=== PATIENT | female | born 1945 | race Caucasian/White ===

== ENCOUNTER 2018-04-20 21:14 | Inpatient (IN) | payer MEDICARE, MEDICAID ==
[~2018-04-20] VITALS: Ht 154.9 cm; Wt 50.0 kg
[~2018-04-20 21:14] MED LIST: ALBU8.5H8 INH; ASPI-1265 PO; ATOR40TA PO; HYDR-3972 PO; METF500T PO; PREG75CA30 PO; VAL5T PO
[2018-04-21 03:10] LABS: BASOPHILS % (AUTO) 0.3 % (0-1); EOSINOPHILS # (AUTO) 0.1 X10'3 (0-0.9); HEMOGLOBIN 13.6 g/dl (12.0-16.0); LYMPHOCYTES # (AUTO) 1.3 X10'3 (1.1-4.8); LYMPHOCYTES % (AUTO) 13.1 % (21-51); MEAN CORPUSCULAR HEMOGLOBIN 33.4 PG (27.0-31.0); MEAN CORPUSCULAR HGB CONC 34.1 % (33.0-36.5); MEAN CORPUSCULAR VOLUME 97.9 FL (78-98); MEAN PLATELET VOLUME 7.4 FL (7.4-10.4); MONOCYTES # (AUTO) 0.7 X10'3 (0-0.9); NEUTROPHILS # (AUTO) 7.6 X10'3 (1.8-7.7); NEUTROPHILS % (AUTO) 78.6 % (42-75); PLATELET COUNT 229 X10'3 (140-440); RED BLOOD COUNT 4.08 X10'6 (4.20-5.60); RED CELL DISTRIBUTION WIDTH 12.9 % (11.5-14.5); WHITE BLOOD COUNT 9.7 X10'3 (4.5-11.0)
[2018-04-21 03:23] LABS: URINE AMPHETAMINE SCREEN NEGATIVE (Neg); URINE BARBITUATE SCREEN NEGATIVE (Neg); URINE BENZODIAZEPINES SCREEN POSITIVE (Neg); URINE CANNABINOID SCREEN NEGATIVE (Neg); URINE COCAINE SCREEN NEGATIVE (Neg); URINE METHADONE SCREEN NEGATIVE (Neg); URINE OPIATE SCREEN NEGATIVE (Neg); URINE PHENCYCLIDINE SCREEN NEGATIVE (Neg)
[2018-04-21 03:25] LABS: ALANINE AMINOTRANSFERASE 25 U/L (12-78); ALBUMIN 3.5 G/DL (3.4-5.0); ALBUMIN/GLOBULIN RATIO 1.2 (1.1-1.5); ALKALINE PHOSPHATASE 82 IU/L (46-116); ANION GAP 8 (8-16); ASPARTATE AMINO TRANSFERASE 14 U/L (10-37); BILIRUBIN,TOTAL 0.4 MG/DL (0.1-1.0); BLOOD UREA NITROGEN 15 MG/DL (7-18); CALCIUM 8.7 MG/DL (8.5-10.1); CHLORIDE 95 MMOL/L (99-107); CREATININE 0.94 MG/DL (0.40-0.90); GLUCOSE 123 MG/DL (70-104); POTASSIUM 3.8 MMOL/L (3.5-5.1); SODIUM 130 MMOL/L (135-145); TOTAL CARBON DIOXIDE 26.7 MMOL/L (24-32); TOTAL PROTEIN 6.5 G/DL (6.4-8.2); eGFR 58 ML/MIN
[2018-04-21 03:32] LABS: TROPONIN I < 0.04 NG/ML (0.0-0.05)
[2018-04-21 03:35] LABS: CLARITY,URINE CLEAR (Clear); COLOR,URINE YELLOW (Yellow); GLUCOSE, URINE NEGATIVE (Neg); KETONES,URINE NEGATIVE (Neg); LEUKOCYTE ESTERASE ,URINE NEGATIVE (Neg); NITRITES, URINE NEGATIVE (Neg); OCCULT BLOOD,URINE TRACE-INTACT (Neg); PH,URINE 6.5 (4.8-8.0); PROTEIN,URINE >=300 mg/dl (Neg); UA COLLECTION TYPE CLN CATCH MIDSTREAM; UROBILINOGEN,URINE 0.2 E.U/dL (0.2-1.0)
[2018-04-21 03:54] LABS: HYALINE CASTS 0-3 /LPF (NEGATIVE)
[2018-04-21 03:55] LABS: BACTERIA,URINE FEW /HPF (Neg); MUCUS STRANDS MODERATE /LPF (Neg); RBC,URINE 0-2 /HPF (0-2); SQUAMOUS EPITHELIAL CELL,UR FEW /LPF (FEW); TRANSITIONAL EPI CELLS,URINE FEW /HPF; WBC,URINE 0-4 /HPF (0-4)
[2018-04-21] MEDS ORDERED: acetaminophen 650mg rectal suppository RC PRN (05:35)
[2018-04-21] MEDS ORDERED: HYDROmorphone inj. 0.5 MG/0.5 ML DISP.SYRIN IV PRN ×2 (05:35)
[2018-04-21] MEDS ORDERED: dextrose ORAL solution 15 GM/59 ML bottle PO PRN ×2 (05:35)
[2018-04-21] MEDS ORDERED: diphenhydrAMINE 50 mg/ml inj IV PRN (05:35)
[2018-04-21] MEDS ORDERED: ondansetron/PF 4mg/2ml inj IV PRN (05:35)
[2018-04-21] MEDS ORDERED: acetaminophen 325mg tablet PO PRN ×2 (05:35)
[2018-04-21] MEDS ORDERED: mag hydrox/Alum hydrox/simeth 30ml oral suspension PO PRN (05:35)
[2018-04-21] MEDS ORDERED: diphenhydrAMINE 25mg capsule PO PRN (05:35)
[2018-04-21] MEDS ORDERED: glucagon, human recombinant 1mg kit SUBCUT PRN (05:35)
[2018-04-21] MEDS ORDERED: magnesium hydroxide 30ml (MOM) UD suspension PO PRN (05:35)
[2018-04-21] MEDS ORDERED: metoclopramide 5 mg/ml inj IV PRN (05:35)
[2018-04-21] MEDS ORDERED: bisacodyl 10mg suppository rectal RC PRN (05:35)
[2018-04-21] MEDS ORDERED: morphine 4 MG/ML inj SYRINge IV PRN ×2 (05:35)
[2018-04-21] MEDS ORDERED: insulin Lispro (HumaLOG) vial - multi-dose SQ SCH (05:35)
[2018-04-21] MEDS ORDERED: dextrose 50%-water 50ml dispensing syringe IV PRN ×2 (05:35)
[2018-04-21] MEDS ORDERED: MESSAGE TO PHARMACY PO ONE (05:35)
[2018-04-21] MEDS ORDERED: HYDROcodone/acetaminophen 5mg/325mg tablet PO PRN (05:35)
[2018-04-21 06:01] LABS: PARTIAL THROMBOPLASTIN TIME 28 SECONDS (22-32)
[2018-04-21 06:06] LABS: HEMOGLOBIN A1C 6.3 % (4.5-6.2)
[2018-04-21 06:07] LABS: CREATINE KINASE 35 U/L (26-192); LIPASE 195 U/L (73-393); MAGNESIUM 1.9 MG/DL (1.5-2.4); PHOSPHORUS 2.9 MG/DL (2.3-4.5)
[2018-04-21] MEDS: normal saline 1000ml 1,000 ML IV SCH ×3 (07:45→19:47)
[2018-04-21] MEDS: docusate sod 100mg capsule PO SCH ×2 (07:45→19:47)
[2018-04-21] MEDS: heparin, porcine 5000 units/ml vial SQ SCH ×2 (07:46→19:48)
[2018-04-21 09:35] VITALS: BP 164/80
[2018-04-21] MEDS: HYDROcodone/acetaminophen 10/325mg tab PO PRN ×4 (10:00→23:47)
[2018-04-21 11:50] VITALS: BP 142/71
[2018-04-21] MEDS ORDERED: gadopentetate dimeglumine 7.5 MMOL/15 ML syringe ONE (15:51)
[2018-04-21 19:00] VITALS: BP 149/59
[2018-04-21] MEDS ORDERED: temazepam 15mg capsule PO PRN (21:00)
[2018-04-21] MEDS: insulin glargine (Lantus) pen - multi-dose SQ SCH (21:00)
[2018-04-21 23:00] VITALS: BP 162/82
[2018-04-22 05:00] LABS: BASOPHILS % (AUTO) 0.4 % (0-1); EOSINOPHILS # (AUTO) 0.1 X10'3 (0-0.9); HEMATOCRIT 35.2 % (35.0-45.0); HEMOGLOBIN 12.1 g/dl (12.0-16.0); LYMPHOCYTES # (AUTO) 1.5 X10'3 (1.1-4.8); LYMPHOCYTES % (AUTO) 24.9 % (21-51); MEAN CORPUSCULAR HEMOGLOBIN 33.4 PG (27.0-31.0); MEAN CORPUSCULAR HGB CONC 34.5 % (33.0-36.5); MEAN CORPUSCULAR VOLUME 96.9 FL (78-98); MEAN PLATELET VOLUME 7.3 FL (7.4-10.4); MONOCYTES # (AUTO) 0.6 X10'3 (0-0.9); MONOCYTES % (AUTO) 10.9 % (2-12); NEUTROPHILS # (AUTO) 3.6 X10'3 (1.8-7.7); NEUTROPHILS % (AUTO) 61.8 % (42-75); PLATELET COUNT 179 X10'3 (140-440); RED BLOOD COUNT 3.64 X10'6 (4.20-5.60); WHITE BLOOD COUNT 5.9 X10'3 (4.5-11.0)
[2018-04-22] MEDS: normal saline 1000ml 1,000 ML IV SCH ×2 (05:04→15:22)
[2018-04-22 05:38] LABS: ALANINE AMINOTRANSFERASE 16 U/L (12-78); ALBUMIN 2.7 G/DL (3.4-5.0); ALKALINE PHOSPHATASE 66 IU/L (46-116); ANION GAP 8 (8-16); ASPARTATE AMINO TRANSFERASE 14 U/L (10-37); BILIRUBIN,TOTAL 0.2 MG/DL (0.1-1.0); BLOOD UREA NITROGEN 14 MG/DL (7-18); BUN/CREATININE RATIO 16.3 (6.6-38.0); CHLORIDE 105 MMOL/L (99-107); CREATININE 0.86 MG/DL (0.40-0.90); GLUCOSE 100 MG/DL (70-104); SODIUM 135 MMOL/L (135-145); TOTAL CARBON DIOXIDE 22.5 MMOL/L (24-32); TOTAL PROTEIN 5.5 G/DL (6.4-8.2); eGFR 65 ML/MIN
[2018-04-22 07:22] VITALS: BP 150/76
[2018-04-22] MEDS: docusate sod 100mg capsule PO SCH ×2 (08:00→20:48)
[2018-04-22] MEDS: heparin, porcine 5000 units/ml vial SQ SCH ×2 (08:54→20:49)
[2018-04-22] MEDS ORDERED: diazepam 5mg tablet PO PRN (09:15)
[2018-04-22] MEDS ORDERED: albuterol 2.5 MG/3 ML nebule NEB PRN (09:15)
[2018-04-22] MEDS: HYDROcodone/acetaminophen 10/325mg tab PO PRN ×3 (10:28→23:32)
[2018-04-22 11:15] VITALS: BP 138/73
[2018-04-22 16:38] LABS: OCCULT BLOOD STOOL NEGATIVE (Neg)
[2018-04-22 19:30] VITALS: BP 171/81
[2018-04-22 20:00] VITALS: BP 167/84
[2018-04-22] MEDS: insulin glargine (Lantus) pen - multi-dose SQ SCH (21:28)
[2018-04-22 23:30] VITALS: BP 197/85
[2018-04-23 00:30] VITALS: BP 160/89
[2018-04-23] MEDS: normal saline 1000ml 1,000 ML IV SCH ×2 (01:26→17:34)
[2018-04-23 05:48] LABS: BASOPHILS % (AUTO) 0.8 % (0-1); EOSINOPHILS # (AUTO) 0.2 X10'3 (0-0.9); EOSINOPHILS % (AUTO) 3.7 % (0-6); HEMATOCRIT 31.1 % (35.0-45.0); HEMOGLOBIN 10.8 g/dl (12.0-16.0); LYMPHOCYTES # (AUTO) 1.3 X10'3 (1.1-4.8); LYMPHOCYTES % (AUTO) 28.3 % (21-51); MEAN CORPUSCULAR HEMOGLOBIN 33.4 PG (27.0-31.0); MEAN CORPUSCULAR HGB CONC 34.8 % (33.0-36.5); MEAN PLATELET VOLUME 7.7 FL (7.4-10.4); MONOCYTES # (AUTO) 0.4 X10'3 (0-0.9); MONOCYTES % (AUTO) 9.9 % (2-12); NEUTROPHILS # (AUTO) 2.6 X10'3 (1.8-7.7); NEUTROPHILS % (AUTO) 57.3 % (42-75); PLATELET COUNT 175 X10'3 (140-440); RED BLOOD COUNT 3.24 X10'6 (4.20-5.60); RED CELL DISTRIBUTION WIDTH 12.8 % (11.5-14.5); WHITE BLOOD COUNT 4.5 X10'3 (4.5-11.0)
[2018-04-23 06:08] LABS: ALANINE AMINOTRANSFERASE 17 U/L (12-78); ALBUMIN 2.6 G/DL (3.4-5.0); ALKALINE PHOSPHATASE 61 IU/L (46-116); ANION GAP 7 (8-16); ASPARTATE AMINO TRANSFERASE 13 U/L (10-37); BILIRUBIN,TOTAL 0.2 MG/DL (0.1-1.0); BLOOD UREA NITROGEN 9 MG/DL (7-18); BUN/CREATININE RATIO 11.5 (6.6-38.0); CALCIUM 7.9 MG/DL (8.5-10.1); CHLORIDE 107 MMOL/L (99-107); CREATININE 0.78 MG/DL (0.40-0.90); GLUCOSE 103 MG/DL (70-104); POTASSIUM 3.7 MMOL/L (3.5-5.1); SODIUM 138 MMOL/L (135-145); TOTAL CARBON DIOXIDE 24.4 MMOL/L (24-32); TOTAL PROTEIN 5.2 G/DL (6.4-8.2); eGFR 72 ML/MIN
[2018-04-23 07:20] VITALS: BP 193/80
[2018-04-23] MEDS: HYDROcodone/acetaminophen 10/325mg tab PO PRN ×2 (07:33→20:43)
[2018-04-23] MEDS: docusate sod 100mg capsule PO SCH ×2 (07:33→19:31)
[2018-04-23] MEDS: metFORMIN 500mg tablet PO SCH (07:33)
[2018-04-23] MEDS: pregabalin 75mg capsule PO SCH (07:33)
[2018-04-23] MEDS: aspirin 81mg tab.chew PO SCH (07:34)
[2018-04-23] MEDS: heparin, porcine 5000 units/ml vial SQ SCH ×2 (07:34→19:32)
[2018-04-23 08:09] VITALS: BP 184/64
[2018-04-23] MEDS ORDERED: cloNIDine 0.1 mg tablet PO PRN (08:20)
[2018-04-23] MEDS ORDERED: LISI10TA4 PO (10:38)
[2018-04-23] MEDS ORDERED: ATOR10TA PO (10:41)
[2018-04-23 12:00] VITALS: BP 125/98
[2018-04-23] MEDS: lisinopril 10 MG tablet PO SCH (13:23)
[2018-04-23 19:00] VITALS: BP 150/63
[2018-04-23] MEDS: insulin glargine (Lantus) pen - multi-dose SQ SCH (21:00)
[2018-04-24 00:10] VITALS: BP 133/79
[2018-04-24] MEDS: HYDROcodone/acetaminophen 10/325mg tab PO PRN (03:22)
[2018-04-24] MEDS: normal saline 1000ml 1,000 ML IV SCH (03:32)
[2018-04-24 05:53] LABS: BASOPHILS % (AUTO) 0.6 % (0-1); EOSINOPHILS # (AUTO) 0.3 X10'3 (0-0.9); EOSINOPHILS % (AUTO) 5.4 % (0-6); HEMATOCRIT 30.8 % (35.0-45.0); HEMOGLOBIN 10.9 g/dl (12.0-16.0); LYMPHOCYTES # (AUTO) 1.2 X10'3 (1.1-4.8); LYMPHOCYTES % (AUTO) 25.6 % (21-51); MEAN CORPUSCULAR HEMOGLOBIN 33.7 PG (27.0-31.0); MEAN CORPUSCULAR HGB CONC 35.3 % (33.0-36.5); MEAN CORPUSCULAR VOLUME 95.5 FL (78-98); MEAN PLATELET VOLUME 7.6 FL (7.4-10.4); MONOCYTES # (AUTO) 0.5 X10'3 (0-0.9); NEUTROPHILS # (AUTO) 2.7 X10'3 (1.8-7.7); NEUTROPHILS % (AUTO) 58.4 % (42-75); PLATELET COUNT 189 X10'3 (140-440); RED BLOOD COUNT 3.23 X10'6 (4.20-5.60); RED CELL DISTRIBUTION WIDTH 12.9 % (11.5-14.5); WHITE BLOOD COUNT 4.7 X10'3 (4.5-11.0)
[2018-04-24 06:25] LABS: ALANINE AMINOTRANSFERASE 20 U/L (12-78); ALBUMIN 2.6 G/DL (3.4-5.0); ALKALINE PHOSPHATASE 60 IU/L (46-116); ANION GAP 8 (8-16); ASPARTATE AMINO TRANSFERASE 11 U/L (10-37); BILIRUBIN,TOTAL 0.2 MG/DL (0.1-1.0); BLOOD UREA NITROGEN 11 MG/DL (7-18); BUN/CREATININE RATIO 11.8 (6.6-38.0); CALCIUM 8.3 MG/DL (8.5-10.1); CHLORIDE 106 MMOL/L (99-107); CREATININE 0.93 MG/DL (0.40-0.90); GLUCOSE 104 MG/DL (70-104); POTASSIUM 3.6 MMOL/L (3.5-5.1); SODIUM 139 MMOL/L (135-145); TOTAL CARBON DIOXIDE 25.4 MMOL/L (24-32); TOTAL PROTEIN 5.3 G/DL (6.4-8.2); eGFR 59 ML/MIN
[2018-04-24 08:00] VITALS: BP 118/57
[2018-04-24] MEDS: aspirin 81mg tab.chew PO SCH (08:24)
[2018-04-24] MEDS: docusate sod 100mg capsule PO SCH (08:25)
[2018-04-24] MEDS: metFORMIN 500mg tablet PO SCH (08:25)
[2018-04-24] MEDS: lisinopril 10 MG tablet PO SCH (08:25)
[2018-04-24] MEDS: heparin, porcine 5000 units/ml vial SQ SCH (08:25)
[2018-04-24] MEDS: pregabalin 75mg capsule PO SCH (08:25)
[2018-04-24 11:00] VITALS: BP 173/72
== END 2018-04-24 14:43 | disposition home or self-care (01) | DRG 392 ==
LOC: ER 21:14 → ED HOLD 04-21 05:32 → SUR 3N 04-21 09:04
PROVIDERS: ADMIT Family Medicine; ATTEND Internal Medicine
PROC: B030YZZ Magnetic Resonance Imaging (MRI) of Brain using Other Contrast (ICD-10-PCS; principal; 2018-04-21)
DX: K52.9 Noninfective gastroenteritis and colitis, unspecified (principal); E87.1 Hypo-osmolality and hyponatremia; E86.0 Dehydration; E11.40 Type 2 diabetes mellitus with diabetic neuropathy, unspecified; E11.65 Type 2 diabetes mellitus with hyperglycemia; E78.00 Pure hypercholesterolemia, unspecified; F03.90 Unspecified dementia, unspecified severity, without behavioral disturbance, psychotic disturbance, mood disturbance, and anxiety; I10 Essential (primary) hypertension; J44.9 Chronic obstructive pulmonary disease, unspecified; Z79.84 Long term (current) use of oral hypoglycemic drugs; Z79.82 Long term (current) use of aspirin; Z88.0 Allergy status to penicillin; Z88.5 Allergy status to narcotic agent; Z88.2 Allergy status to sulfonamides; Z88.8 Allergy status to other drugs, medicaments and biological substances; Z87.891 Personal history of nicotine dependence; Z81.8 Family history of other mental and behavioral disorders; Z82.49 Family history of ischemic heart disease and other diseases of the circulatory system
CPT/HCPCS: 36415; 70450; 70553; 71045; 71250; 74176; 80053; 80305; 81001; 82272; 82550; 82948; 83036; 83605; 83690; 83735; 83880; 84100; 84443; 84484; 85025; 85610; 85730; 87040; 87045; 87046; 87070; 89055; 99285; A6258; A9579; J1644; J1815; J2270; J2405; J7030

== ENCOUNTER 2019-05-08 20:33 | Inpatient (IN) | payer MEDICARE, MEDICAID ==
[~2019-05-08] VITALS: Ht 154.9 cm; Wt 50.0 kg
[~2019-05-08 20:33] MED LIST changes: +ATOR10TA PO; -ATOR40TA PO; -HYDR-3972 PO; +LISI10TA4 PO; -VAL5T PO
--- NOTE | 2019-05-08 21:04 | NUR ---
Stroke RN Anum at bedside at this time.
[2019-05-08 21:08] LABS: ALANINE AMINOTRANSFERASE 27 U/L (12-78); ALBUMIN 3.9 G/DL (3.4-5.0); ALBUMIN/GLOBULIN RATIO 1.3 (1.1-1.5); ALKALINE PHOSPHATASE 85 IU/L (46-116); ANION GAP 8 (8-16); ASPARTATE AMINO TRANSFERASE 20 U/L (10-37); BILIRUBIN,TOTAL 0.2 MG/DL (0.1-1.0); BLOOD UREA NITROGEN 21 MG/DL (7-18); BUN/CREATININE RATIO 17.5 (6.6-38.0); CALCIUM 8.4 MG/DL (8.5-10.1); CHLORIDE 103 MMOL/L (99-107); ETHANOL < 0.010 GM/DL (0.0-0.010); GLUCOSE 112 MG/DL (70-104); SODIUM 139 MMOL/L (135-145); TOTAL CARBON DIOXIDE 28.1 MMOL/L (24-32); TOTAL PROTEIN 6.9 G/DL (6.4-8.2); eGFR 44 ML/MIN
[2019-05-08 21:09] LABS: BASOPHILS # (AUTO) 0.1 X10'3 (0-0.2); BASOPHILS % (AUTO) 0.6 % (0-1); EOSINOPHILS # (AUTO) 0.2 X10'3 (0-0.9); EOSINOPHILS % (AUTO) 2.1 % (0-6); HEMATOCRIT 38.7 % (35.0-45.0); HEMOGLOBIN 13.3 g/dl (12.0-16.0); LYMPHOCYTES # (AUTO) 1.9 X10'3 (1.1-4.8); LYMPHOCYTES % (AUTO) 20.3 % (21-51); MEAN CORPUSCULAR HEMOGLOBIN 34.4 PG (27.0-31.0); MEAN CORPUSCULAR HGB CONC 34.4 g/dL (33.0-36.5); MEAN PLATELET VOLUME 8.3 FL (7.4-10.4); MONOCYTES # (AUTO) 0.7 X10'3 (0-0.9); MONOCYTES % (AUTO) 7.7 % (2-12); NEUTROPHILS # (AUTO) 6.4 X10'3 (1.8-7.7); NEUTROPHILS % (AUTO) 69.3 % (42-75); PLATELET COUNT 217 X10'3 (140-440); RED BLOOD COUNT 3.87 X10'6 (4.20-5.60); RED CELL DISTRIBUTION WIDTH 12.6 % (11.5-14.5); WHITE BLOOD COUNT 9.3 X10'3 (4.5-11.0)
--- NOTE | 2019-05-08 21:10 | NUR ---
Tele neuro in session at this time.
[2019-05-08 21:14] LABS: PARTIAL THROMBOPLASTIN TIME 28 SECONDS (22-32)
[2019-05-08 21:15] LABS: POTASSIUM 4.3 MMOL/L (3.5-5.1)
[2019-05-08] MEDS ORDERED: BUDE10.2 INH (21:31)
[2019-05-08] MEDS ORDERED: MELO-100 PO (21:31)
--- NOTE | 2019-05-08 21:32 | NUR ---
Spoke with pt's significant other, Brando, from emergency contact list. Reconciled medication. Pt's boyfriend reported that pt had a slight eye droop at the time of incident.
--- NOTE | 2019-05-08 21:41 | NUR ---
level 1 stroke on a 74 yo fe who fell in the foster way after coming out of the bathroom. She felt dizzy and light headed before falling. Pts S.O. was right there. She said she felt very weak and couldn"t talk coherently initially. She said her left arm was "numb" but came back fast. This has never happened before. She says she has not eaten much today. Pt with H/O htn, DM, takes a daily asa 81mg, admits to not taking her meds every day as prescribed. Initially pt exhibited a subtle left drift before 5 seconds, however, during neurology exam it was not present. Speech is clear, sensation is intact, no aphasia, no extinction or neglect. 2104 tele neurology consult with SOC neurologist Dr. Otero.
[2019-05-08] MEDS ORDERED: iohexol 350MG/ML 100ml bottle IV ONE (21:44)
--- NOTE | 2019-05-08 22:00 | NUR ---
PATIENT TO CT AT THIS TIME VIA WHEELCHAIR, NO SIGNS OF DISTRESS NOTED.
[2019-05-08 22:01] LABS: CHOL/HDL RATIO 5.4 (0.00-4.99); CHOLESTEROL 178 MG/DL (0-200); HDL CHOLESTEROL 33 MG/DL (35-60); LDL CHOLESTEROL 104 MG/DL (50-100); TRIGLYCERIDES 313 MG/DL (20-135)
[2019-05-08 22:15] LABS: CLARITY,URINE CLEAR (Clear); COLOR,URINE YELLOW (Yellow); GLUCOSE, URINE NEGATIVE (Neg); KETONES,URINE NEGATIVE (Neg); LEUKOCYTE ESTERASE ,URINE NEGATIVE (Neg); NITRITES, URINE NEGATIVE (Neg); OCCULT BLOOD,URINE NEGATIVE (Neg); PH,URINE 5.5 (4.8-8.0); PROTEIN,URINE 30 mg/dl (Neg); UROBILINOGEN,URINE 0.2 E.U/dL (0.2-1.0)
[2019-05-08 22:16] LABS: UA COLLECTION TYPE VOIDED
[2019-05-08 22:24] LABS: SQUAMOUS EPITHELIAL CELL,UR FEW /LPF (FEW)
[2019-05-08 22:27] LABS: URINE AMPHETAMINE SCREEN NEGATIVE (Neg); URINE BARBITUATE SCREEN NEGATIVE (Neg); URINE BENZODIAZEPINES SCREEN POSITIVE (Neg); URINE CANNABINOID SCREEN NEGATIVE (Neg); URINE COCAINE SCREEN NEGATIVE (Neg); URINE METHADONE SCREEN NEGATIVE (Neg); URINE OPIATE SCREEN POSITIVE (Neg); URINE PHENCYCLIDINE SCREEN NEGATIVE (Neg)
[2019-05-08 22:28] LABS: WBC,URINE 0-4 /HPF (0-4)
[2019-05-08 22:29] LABS: BACTERIA,URINE FEW /HPF (Neg); RBC,URINE 0-2 /HPF (0-2)
[2019-05-08] MEDS ORDERED: MESSAGE TO PHARMACY PO ONE (22:40)
[2019-05-08] MEDS ORDERED: magnesium hydroxide 30ml (MOM) UD suspension PO PRN (22:40)
[2019-05-08] MEDS ORDERED: ondansetron/PF 4mg/2ml inj IV PRN (22:40)
[2019-05-08] MEDS ORDERED: glucagon, human recombinant 1mg kit SUBCUT PRN (22:40)
[2019-05-08] MEDS ORDERED: insulin Lispro (HumaLOG) vial - multi-dose SQ SCH (22:40)
[2019-05-08] MEDS ORDERED: dextrose 50%-water 50ml dispensing syringe IV PRN ×2 (22:40)
[2019-05-08] MEDS ORDERED: dextrose ORAL solution 15 GM/59 ML bottle PO PRN ×2 (22:40)
[2019-05-08] MEDS ORDERED: clopidogrel 300mg tablet PO ONE (22:40)
[2019-05-08] MEDS ORDERED: acetaminophen 325mg tablet PO PRN (22:40)
[2019-05-08] MEDS ORDERED: albuterol 2.5 MG/3 ML nebule NEB PRN (22:45)
[2019-05-08] MEDS ORDERED: HYDR-3965 PO (22:54)
[2019-05-08 23:04] LABS: HEMOGLOBIN A1C 6.2 % (4.5-6.2)
[2019-05-08] MEDS: HYDROcodone/acetaminophen 5mg/325mg tablet PO PRN (23:14)
[2019-05-09] MEDS: albuterol 2.5 MG/3 ML nebule NEB SCH ×4 (02:30→20:11)
[2019-05-09] MEDS: HYDROcodone/acetaminophen 5mg/325mg tablet PO PRN ×4 (04:47→17:46)
[2019-05-09 06:21] LABS: BASOPHILS # (AUTO) 0.1 X10'3 (0-0.2); BASOPHILS % (AUTO) 1.2 % (0-1); EOSINOPHILS # (AUTO) 0.2 X10'3 (0-0.9); EOSINOPHILS % (AUTO) 3.2 % (0-6); HEMOGLOBIN 12.6 g/dl (12.0-16.0); LYMPHOCYTES # (AUTO) 1.7 X10'3 (1.1-4.8); MEAN CORPUSCULAR HGB CONC 34.2 g/dL (33.0-36.5); MEAN CORPUSCULAR VOLUME 99.6 FL (78-98); MEAN PLATELET VOLUME 7.8 FL (7.4-10.4); MONOCYTES # (AUTO) 0.6 X10'3 (0-0.9); MONOCYTES % (AUTO) 9.2 % (2-12); NEUTROPHILS # (AUTO) 3.8 X10'3 (1.8-7.7); NEUTROPHILS % (AUTO) 60.4 % (42-75); PLATELET COUNT 207 X10'3 (140-440); RED BLOOD COUNT 3.72 X10'6 (4.20-5.60); RED CELL DISTRIBUTION WIDTH 12.7 % (11.5-14.5); WHITE BLOOD COUNT 6.4 X10'3 (4.5-11.0)
[2019-05-09 06:55] LABS: ALBUMIN 3.4 G/DL (3.4-5.0); ANION GAP 6 (8-16); BLOOD UREA NITROGEN 18 MG/DL (7-18); BUN/CREATININE RATIO 16.4 (6.6-38.0); CALCIUM 8.5 MG/DL (8.5-10.1); CHLORIDE 107 MMOL/L (99-107); GLUCOSE 110 MG/DL (70-104); POTASSIUM 4.5 MMOL/L (3.5-5.1); SODIUM 139 MMOL/L (135-145); TOTAL CARBON DIOXIDE 25.7 MMOL/L (24-32); eGFR 49 ML/MIN
[2019-05-09 08:00] VITALS: BP 168/41
--- NOTE | 2019-05-09 08:00 | NUR ---
Patient in room ORTHO 4009. I have received report from KATIE REYES and had the opportunity to ask questions and assume patient care.
[2019-05-09] MEDS: budesonide 0.5mg/2ml UD nebule IH SCH ×2 (09:04→20:11)
[2019-05-09] MEDS: clopidogrel 75mg tablet PO SCH (09:15)
[2019-05-09] MEDS: lisinopril 10 MG tablet PO SCH (09:15)
[2019-05-09] MEDS: MELOXICAM PO SCH (09:16)
[2019-05-09] MEDS: atorvastatin 10mg tablet PO SCH (09:18)
[2019-05-09 10:00] VITALS: BP 169/64
--- NOTE | 2019-05-09 10:43 | NUR ---
Back from MRI. Doing well, except neck is very sore, "pt feels from her fall yesterday." No lateralizing signs noted.
[2019-05-09 14:00] VITALS: BP 121/53
--- NOTE | 2019-05-09 14:29 | NUR ---
DM Consult: Pt hx T2DM A1C <7 and not appropriate for DM ed at this time. Addendum: 05/09/19 at [address] Amended: Links added.
[2019-05-09 18:00] VITALS: BP 118/41
--- NOTE | 2019-05-09 18:15 | NUR ---
Problems reprioritized. Patient report given, questions answered & plan of care reviewed with SYDNIE REYES.
[2019-05-09] MEDS: insulin glargine (Lantus) pen - multi-dose SQ SCH (21:00)
[2019-05-10 02:00] VITALS: BP 139/41
[2019-05-10] MEDS: albuterol 2.5 MG/3 ML nebule NEB SCH ×4 (03:00→20:38)
[2019-05-10 06:00] VITALS: BP 121/49
[2019-05-10 06:21] LABS: ALBUMIN 3.2 G/DL (3.4-5.0); ANION GAP 6 (8-16); BLOOD UREA NITROGEN 26 MG/DL (7-18); BUN/CREATININE RATIO 20.8 (6.6-38.0); CALCIUM 8.3 MG/DL (8.5-10.1); CHLORIDE 105 MMOL/L (99-107); CREATININE 1.25 MG/DL (0.40-0.90); GLUCOSE 123 MG/DL (70-104); POTASSIUM 4.6 MMOL/L (3.5-5.1); SODIUM 136 MMOL/L (135-145); TOTAL CARBON DIOXIDE 25.2 MMOL/L (24-32); eGFR 42 ML/MIN
[2019-05-10 06:26] LABS: BASOPHILS % (AUTO) 0.8 % (0-1); EOSINOPHILS # (AUTO) 0.1 X10'3 (0-0.9); EOSINOPHILS % (AUTO) 1.9 % (0-6); HEMATOCRIT 34.6 % (35.0-45.0); HEMOGLOBIN 11.9 g/dl (12.0-16.0); LYMPHOCYTES # (AUTO) 1.1 X10'3 (1.1-4.8); MEAN CORPUSCULAR HEMOGLOBIN 34.1 PG (27.0-31.0); MEAN CORPUSCULAR HGB CONC 34.4 g/dL (33.0-36.5); MEAN CORPUSCULAR VOLUME 99.1 FL (78-98); MONOCYTES # (AUTO) 0.5 X10'3 (0-0.9); MONOCYTES % (AUTO) 8.1 % (2-12); NEUTROPHILS # (AUTO) 4.1 X10'3 (1.8-7.7); NEUTROPHILS % (AUTO) 70.2 % (42-75); PLATELET COUNT 174 X10'3 (140-440); RED BLOOD COUNT 3.49 X10'6 (4.20-5.60); RED CELL DISTRIBUTION WIDTH 12.6 % (11.5-14.5); WHITE BLOOD COUNT 5.9 X10'3 (4.5-11.0)
[2019-05-10] MEDS: MELOXICAM PO SCH (07:54)
[2019-05-10] MEDS: clopidogrel 75mg tablet PO SCH (07:56)
[2019-05-10] MEDS: atorvastatin 10mg tablet PO SCH (07:56)
[2019-05-10] MEDS: lisinopril 10 MG tablet PO SCH (07:57)
[2019-05-10] MEDS: HYDROcodone/acetaminophen 5mg/325mg tablet PO PRN ×4 (07:57→21:28)
[2019-05-10] MEDS: budesonide 0.5mg/2ml UD nebule IH SCH ×2 (08:14→20:38)
[2019-05-10 10:00] VITALS: BP 134/44
--- NOTE | 2019-05-10 11:22 | NUR ---
SOC follow up consult set up at request of Dr Sotomayor. Pt is experiencing what she calls "blurred" vision in left eye since event that brought her to the ED 2 days ago. When questioned to describe what she means by blurry, pt describes moving streaks of light that comes and goes periodic. Consult is pending. Necessary paper work faxed as per SOC request. Stroke work up is negative.
--- NOTE | 2019-05-10 13:20 | NUR ---
PAGER ID: [phone] MESSAGE: [email or web address] RE: SPARKS [id number] DAUGHTER IS REQUESTING A VASCULAR STUDY.
[2019-05-10 14:00] VITALS: BP 127/42
[2019-05-10] MEDS: acetaminophen 325mg tablet PO PRN (15:30)
--- NOTE | 2019-05-10 16:31 | NUR ---
PAGER ID: [phone] MESSAGE: [id number] RE: SPARKS [id number] FYI TELE NEURO WILL BE DONE TOMORROW MORNING.
[2019-05-10 18:00] VITALS: BP 148/61
--- NOTE | 2019-05-10 18:05 | NUR ---
Problems reprioritized. Patient report given, questions answered & plan of care reviewed with SYDNIE REYES.
--- NOTE | 2019-05-10 19:00 | NUR ---
Patient in room ORTHO 4009. I have received report from Robert and had the opportunity to ask questions and assume patient care.
[2019-05-10] MEDS: insulin glargine (Lantus) pen - multi-dose SQ SCH (21:00)
[2019-05-10] MEDS: mag hydrox/Alum hydrox/simeth 30ml oral suspension PO PRN (21:59)
[2019-05-10 22:00] VITALS: BP 158/96
[2019-05-11] MEDS: HYDROcodone/acetaminophen 5mg/325mg tablet PO PRN ×5 (01:01→21:43)
[2019-05-11 02:00] VITALS: BP 163/46
--- NOTE | 2019-05-11 04:38 | NUR ---
Attempted to do SOC with patient at this time but she is very tired and expressed wanting to sleep and unhappy about being woken up for an evaluation at this time. Patient was forgetful about having a tele soc evaluation before. Neurologist is planning on doing the follow up evaluation around [id number] to 8 am today.
[2019-05-11 06:00] VITALS: BP 143/50
[2019-05-11 06:18] LABS: ALBUMIN 3.4 G/DL (3.4-5.0); ANION GAP 8 (8-16); BLOOD UREA NITROGEN 29 MG/DL (7-18); BUN/CREATININE RATIO 27.9 (6.6-38.0); CALCIUM 8.7 MG/DL (8.5-10.1); CHLORIDE 102 MMOL/L (99-107); CREATININE 1.04 MG/DL (0.40-0.90); GLUCOSE 118 MG/DL (70-104); POTASSIUM 4.8 MMOL/L (3.5-5.1); SODIUM 135 MMOL/L (135-145); TOTAL CARBON DIOXIDE 24.7 MMOL/L (24-32); eGFR 52 ML/MIN
[2019-05-11 07:26] LABS: BASOPHILS % (AUTO) 0.7 % (0-1); EOSINOPHILS # (AUTO) 0.1 X10'3 (0-0.9); EOSINOPHILS % (AUTO) 1.5 % (0-6); HEMATOCRIT 36.3 % (35.0-45.0); HEMOGLOBIN 12.2 g/dl (12.0-16.0); LYMPHOCYTES # (AUTO) 0.8 X10'3 (1.1-4.8); LYMPHOCYTES % (AUTO) 12.4 % (21-51); MEAN CORPUSCULAR HEMOGLOBIN 33.7 PG (27.0-31.0); MEAN CORPUSCULAR HGB CONC 33.6 g/dL (33.0-36.5); MEAN CORPUSCULAR VOLUME 100.4 FL (78-98); MEAN PLATELET VOLUME 8.3 FL (7.4-10.4); MONOCYTES # (AUTO) 0.4 X10'3 (0-0.9); MONOCYTES % (AUTO) 5.4 % (2-12); NEUTROPHILS # (AUTO) 5.2 X10'3 (1.8-7.7); PLATELET COUNT 187 X10'3 (140-440); RED BLOOD COUNT 3.62 X10'6 (4.20-5.60); RED CELL DISTRIBUTION WIDTH 12.9 % (11.5-14.5); WHITE BLOOD COUNT 6.5 X10'3 (4.5-11.0)
[2019-05-11] MEDS: MELOXICAM PO SCH (08:00)
[2019-05-11] MEDS: atorvastatin 10mg tablet PO SCH (08:19)
[2019-05-11] MEDS: lisinopril 10 MG tablet PO SCH (08:19)
[2019-05-11] MEDS: clopidogrel 75mg tablet PO SCH (08:20)
[2019-05-11] MEDS: albuterol 2.5 MG/3 ML nebule NEB SCH ×3 (09:00→20:55)
[2019-05-11] MEDS: budesonide 0.5mg/2ml UD nebule IH SCH ×2 (09:00→20:55)
[2019-05-11 10:00] VITALS: BP 124/48
[2019-05-11] MEDS: acetaminophen 325mg tablet PO PRN ×2 (10:11→23:32)
[2019-05-11] MEDS ORDERED: atorvastatin 10mg tablet PO ONE (11:00)
[2019-05-11] MEDS: aspirin 81mg tab.chew PO SCH (11:40)
[2019-05-11] MEDS: mag hydrox/Alum hydrox/simeth 30ml oral suspension PO PRN (11:40)
--- NOTE | 2019-05-11 12:25 | NUR ---
PAGER ID: [phone] MESSAGE: [id number] RE: SPARKS [id number] PT HAS BEEN COMPLAINING OF BURNING IN STOMACH ALL DAY WITH NO RELIEF FROM ZOFRAN AND MAALOX. WHAT NEXT?
--- NOTE | 2019-05-11 13:13 | NUR ---
PAGER ID: [phone] MESSAGE: [id number] [phone] RE: SPARKS [id number] FYI CAROTIDS CRITICAL VALUE 80-99% STENOSIS LEFT ICA. PRELIM REPORT COMING UP SOON.
[2019-05-11] MEDS: pantoprazole 40mg Tablet.DR PO SCH (13:31)
[2019-05-11 18:00] VITALS: BP 121/43
--- NOTE | 2019-05-11 18:10 | NUR ---
Problems reprioritized. Patient report given, questions answered & plan of care reviewed with SYDNIE REYES.
--- NOTE | 2019-05-11 19:00 | NUR ---
Patient in room ORTHO 4009. I have received report from Robert REYES and had the opportunity to ask questions and assume patient care.
[2019-05-11] MEDS: diatr meglu/diatrizoate 30ml oral sol.-(3 dose) bottle PO SCH (21:43)
[2019-05-11 22:00] VITALS: BP 103/36
[2019-05-12] MEDS: HYDROcodone/acetaminophen 5mg/325mg tablet PO PRN ×3 (01:39→12:32)
[2019-05-12] MEDS: albuterol 2.5 MG/3 ML nebule NEB SCH ×3 (02:58→13:41)
[2019-05-12] MEDS ORDERED: PHENYLEPH/MIN OIL/PETROLAT hemorrhoid oint 57GM tube RC PRN (03:53)
[2019-05-12 06:00] VITALS: BP 126/50
--- NOTE | 2019-05-12 06:30 | NUR ---
Patient in room ORTHO 4009. I have received report from and had the opportunity to ask questions and assume patient care ERIC Floers.
[2019-05-12] MEDS: clopidogrel 75mg tablet PO SCH (07:38)
[2019-05-12] MEDS: aspirin 81mg tab.chew PO SCH (07:38)
[2019-05-12] MEDS: lisinopril 10 MG tablet PO SCH (07:39)
[2019-05-12] MEDS: diatr meglu/diatrizoate 30ml oral sol.-(3 dose) bottle PO SCH (07:40)
[2019-05-12] MEDS: pantoprazole 40mg Tablet.DR PO SCH (07:40)
[2019-05-12 07:48] LABS: BASOPHILS # (AUTO) 0.1 X10'3 (0-0.2); BASOPHILS % (AUTO) 0.8 % (0-1); EOSINOPHILS # (AUTO) 0.1 X10'3 (0-0.9); EOSINOPHILS % (AUTO) 2.1 % (0-6); HEMATOCRIT 36.9 % (35.0-45.0); HEMOGLOBIN 12.5 g/dl (12.0-16.0); LYMPHOCYTES # (AUTO) 1.2 X10'3 (1.1-4.8); MEAN CORPUSCULAR HGB CONC 33.8 g/dL (33.0-36.5); MEAN CORPUSCULAR VOLUME 100.5 FL (78-98); MEAN PLATELET VOLUME 8.6 FL (7.4-10.4); MONOCYTES # (AUTO) 0.4 X10'3 (0-0.9); MONOCYTES % (AUTO) 6.7 % (2-12); NEUTROPHILS # (AUTO) 4.8 X10'3 (1.8-7.7); NEUTROPHILS % (AUTO) 72.4 % (42-75); PLATELET COUNT 170 X10'3 (140-440); RED BLOOD COUNT 3.67 X10'6 (4.20-5.60); RED CELL DISTRIBUTION WIDTH 12.6 % (11.5-14.5); WHITE BLOOD COUNT 6.6 X10'3 (4.5-11.0)
[2019-05-12] MEDS ORDERED: atorvastatin 20mg tablet PO SCH (08:00)
[2019-05-12] MEDS: MELOXICAM PO SCH (08:00)
[2019-05-12] MEDS: budesonide 0.5mg/2ml UD nebule IH SCH (08:03)
--- NOTE | 2019-05-12 08:10 | NUR ---
paged Dr Sotomayor: CT lab request order input for both oral contrast and IV contrast. Notes state both, need official order for both IV and oral
[2019-05-12 08:26] LABS: ALBUMIN 3.5 G/DL (3.4-5.0); ANION GAP 12 (8-16); BLOOD UREA NITROGEN 29 MG/DL (7-18); CALCIUM 8.7 MG/DL (8.5-10.1); CHLORIDE 99 MMOL/L (99-107); CREATININE 1.32 MG/DL (0.40-0.90); GLUCOSE 101 MG/DL (70-104); SODIUM 134 MMOL/L (135-145); TOTAL CARBON DIOXIDE 22.7 MMOL/L (24-32); eGFR 39 ML/MIN
[2019-05-12 10:00] VITALS: BP 141/45
[2019-05-12] MEDS ORDERED: PANT40TA4 PO (12:27)
[2019-05-12] MEDS ORDERED: ASPI-1265 PO (12:27)
[2019-05-12] MEDS ORDERED: CLOP75TA35 PO (12:27)
[2019-05-12] MEDS ORDERED: ATOR20TA66 PO (12:27)
--- NOTE | 2019-05-12 14:00 | NUR ---
DISCHARGE: 1400. All DC documents signed, copies released to pt. Follow up instructions for future procedures/schedule next 1-2 weeks. pt daughter and pt verbalized understanding. New Rx called into [facility] pharmacy Alysia Suero/[facility]ake [place]. Pt excorted BHARATI in WC by [facility] staff. Transferred safely into personal vehicle home. pt thanked [facility] staff for pt care. Pt denies pain, SOB, resp distress, N/V, vertigo at time of DC.
== END 2019-05-12 14:47 | disposition home or self-care (01) | DRG 69 ==
LOC: ER 20:34 → ORTHO 4S 05-09 08:33 → OBSVTOIN 05-09 08:33
PROVIDERS: ADMIT Hospitalist; ATTEND Family Medicine
PROC: B3251ZZ Computerized Tomography (CT Scan) of Bilateral Common Carotid Arteries using Low Osmolar Contrast (ICD-10-PCS; principal; 2019-05-08)
PROC: B32G1ZZ Computerized Tomography (CT Scan) of Bilateral Vertebral Arteries using Low Osmolar Contrast (ICD-10-PCS; 2019-05-08)
PROC: B3281ZZ Computerized Tomography (CT Scan) of Bilateral Internal Carotid Arteries using Low Osmolar Contrast (ICD-10-PCS; 2019-05-08)
DX: G45.9 Transient cerebral ischemic attack, unspecified (principal); E11.9 Type 2 diabetes mellitus without complications; E78.00 Pure hypercholesterolemia, unspecified; I10 Essential (primary) hypertension; I65.22 Occlusion and stenosis of left carotid artery; J44.9 Chronic obstructive pulmonary disease, unspecified; S06.0X0A Concussion without loss of consciousness, initial encounter; R10.13 Epigastric pain; W18.30XA Fall on same level, unspecified, initial encounter; W18.39XA Other fall on same level, initial encounter; Y93.89 Activity, other specified; Z88.0 Allergy status to penicillin; Z88.6 Allergy status to analgesic agent; Z87.891 Personal history of nicotine dependence; Z79.82 Long term (current) use of aspirin; Z88.2 Allergy status to sulfonamides; Z88.1 Allergy status to other antibiotic agents; Y99.8 Other external cause status; Z79.84 Long term (current) use of oral hypoglycemic drugs; Z82.49 Family history of ischemic heart disease and other diseases of the circulatory system; Z83.6 Family history of other diseases of the respiratory system; Z82.0 Family history of epilepsy and other diseases of the nervous system; Z90.49 Acquired absence of other specified parts of digestive tract; Z98.51 Tubal ligation status; Y92.091 Bathroom in other non-institutional residence as the place of occurrence of the external cause
CPT/HCPCS: 36415; 70450; 70496; 70498; 70544; 70551; 71045; 74022; 74176; 80048; 80053; 80061; 80305; 80320; 81001; 82948; 83036; 84484; 85025; 85610; 85730; 87081; 93005; 93306; 93880; 94640; 94760; 97161; 97530; 99285; G0378; J1815; J2405; J7626; Q9963; Q9967

== ENCOUNTER 2019-09-04 14:09 | Inpatient (IN) | payer MEDICARE, MEDICAID ==
[~2019-09-04] VITALS: Ht 162.6 cm; Wt 46.9 kg
[2019-09-04] VITALS (14 sets, daily range): BP systolic 78–113; BP diastolic 30–65
[~2019-09-04 14:09] MED LIST changes: -ATOR10TA PO; +ATOR20TA66 PO; +BUDE10.2 INH; +CLOP75TA35 PO; +PANT40TA4 PO; -PREG75CA30 PO
[2019-09-04] MEDS ORDERED: diphenhydrAMINE 25mg capsule PO PRN (14:30)
[2019-09-04] MEDS ORDERED: LORazepam 0.5 MG tablet PO PRN (14:30)
[2019-09-04] MEDS ORDERED: MELO-100 PO (14:52)
[2019-09-04] MEDS ORDERED: LISI10TA4 PO (15:01)
[2019-09-04] MEDS ORDERED: ASPI81TA52 PO (15:01)
[2019-09-04] MEDS ORDERED: ATOR10TA87 PO (15:01)
[2019-09-04] MEDS: normal saline 1,000 ML IV SCH ×2 (16:02→21:57)
[2019-09-04] MEDS ORDERED: LIDOcaine 1% (10mg/ml)w/preservative injection 20ml MDV ONE ×2 (16:31→17:09)
[2019-09-04] MEDS ORDERED: atropine 0.1mg/ml 10ml syringe ONE (16:31)
[2019-09-04] MEDS ORDERED: DOPamine 400mg/D5W 250ml 250 ML IV ONE (16:31)
[2019-09-04] MEDS ORDERED: phenylephrine 10mg/ml inj. ONE (16:31)
[2019-09-04] MEDS ORDERED: iohexol 350MG/ML 100ml bottle IV ONE (16:31)
[2019-09-04] MEDS ORDERED: heparin 1,000unit/ml 10ml vial 10 ML ONE ×2 (16:31→18:30)
[2019-09-04] MEDS ORDERED: heparin 1,000 UNITS/NS 500ml 500 ML ONE (16:32)
[2019-09-04] MEDS ORDERED: midazolam 2 mg/2 ml injection ONE (17:07)
[2019-09-04] MEDS ORDERED: hydrALAZINE 20mg/ml inj. IV ONE (17:40)
[2019-09-04] MEDS ORDERED: nitroGLYCERIN-Tridil 50MG/D5W 250 ML IV ONE (17:41)
[2019-09-04] MEDS ORDERED: HYDROmorphone 1 mg/ml syringe ONE (17:49)
--- NOTE | 2019-09-04 18:13 | NUR ---
Pt returned from the pipelines laborer accompanied by RN, Alexander. BP 70's at this time, bolus in process from pipelines laborer. Recheck BP now 80's. Right groin site CDI. Pt c/o headache. Awaiting CT results.
[2019-09-04] MEDS ORDERED: heparin 25,000 UNIT/250ml bag 250 ML IV ONE (18:30)
--- NOTE | 2019-09-04 18:30 | NUR ---
Orders received to start Heparin at 1000units per hour and administer 3000unit bolus. Alexander RN at the bedside administered 3000 unit bolus and started Heparin gtt. Dr. Rodriguez aware CT results not back yet and wants to administer Heparin.
[2019-09-04] MEDS ORDERED: heparin 25,000 UNIT/250ml bag 250 ML IV SCH (18:31)
[2019-09-04] MEDS ORDERED: heparin 10,000 units/1 ML INJ IV PRN (18:35)
[2019-09-04] MEDS ORDERED: heparin 10,000 units/1 ML INJ IV ONE ×2 (18:35)
--- NOTE | 2019-09-04 18:53 | NUR ---
Spoke with Dr. Rodriguez will DC heparin gtt and give 300mg Plavix now.
[2019-09-04] MEDS ORDERED: clopidogrel 300mg tablet PO ONE (18:55)
--- NOTE | 2019-09-04 19:30 | NUR ---
Report to [facility] on [facility] , BP 90's at this time. Pt continues to complain of headache, Dr. Rodriguez aware. Pt transferred to [facility]E at 1935. Pt denies cp or discomfort at this time remains in NSR.
[2019-09-04] MEDS ORDERED: albuterol 2.5 MG/3 ML nebule NEB PRN (20:00)
[2019-09-04 20:26] LABS: BASOPHILS # (AUTO) 0.1 X10'3 (0-0.2); BASOPHILS % (AUTO) 0.8 % (0-1); EOSINOPHILS # (AUTO) 0.2 X10'3 (0-0.9); EOSINOPHILS % (AUTO) 2.1 % (0-6); HEMATOCRIT 34.8 % (35.0-45.0); HEMOGLOBIN 11.8 g/dl (12.0-16.0); LYMPHOCYTES # (AUTO) 1.5 X10'3 (1.1-4.8); LYMPHOCYTES % (AUTO) 20.3 % (21-51); MEAN CORPUSCULAR HEMOGLOBIN 34.9 PG (27.0-31.0); MEAN CORPUSCULAR HGB CONC 33.8 g/dL (33.0-36.5); MEAN PLATELET VOLUME 7.5 FL (7.4-10.4); MONOCYTES # (AUTO) 0.6 X10'3 (0-0.9); MONOCYTES % (AUTO) 8.1 % (2-12); NEUTROPHILS # (AUTO) 5.1 X10'3 (1.8-7.7); NEUTROPHILS % (AUTO) 68.7 % (42-75); PLATELET COUNT 172 X10'3 (140-440); RED BLOOD COUNT 3.38 X10'6 (4.20-5.60); RED CELL DISTRIBUTION WIDTH 12.5 % (11.5-14.5); WHITE BLOOD COUNT 7.4 X10'3 (4.5-11.0)
[2019-09-04] MEDS: albuterol 2.5 MG/3 ML nebule NEB SCH (20:30)
[2019-09-04] MEDS: budesonide 0.5mg/2ml UD nebule IH SCH (20:31)
[2019-09-04] MEDS ORDERED: proCHLORperazine 10 MG/2 ml inj IV PRN (21:35)
[2019-09-04] MEDS ORDERED: ondansetron/PF 4mg/2ml inj IV PRN (21:35)
[2019-09-04] MEDS ORDERED: OXAZEpam 15mg capsule PO PRN (21:35)
[2019-09-04] MEDS ORDERED: HYDROcodone/acetaminophen 5mg/325mg tablet PO PRN (21:35)
--- NOTE | 2019-09-04 22:15 | NUR ---
Spoke with Dr Rodriguez about patients low blood pressures' 70's to 80's systolic. Was told it was normal for patients to have low bp's after carotid procedures. Addendum: 09/05/19 at 0706 by [facility] Frost RN Was told no interventions were needed unless patient became symptomatic.
[2019-09-04] MEDS: HYDROcodone/acetaminophen 10/325mg tab PO PRN (22:19)
[2019-09-05 02:00] VITALS: BP 106/39
[2019-09-05] MEDS: HYDROcodone/acetaminophen 10/325mg tab PO PRN ×2 (02:18→07:53)
[2019-09-05] MEDS: albuterol 2.5 MG/3 ML nebule NEB SCH ×2 (02:44→07:38)
[2019-09-05 02:54] LABS: BASOPHILS % (AUTO) 0.5 % (0-1); EOSINOPHILS % (AUTO) 0.3 % (0-6); HEMOGLOBIN 9.6 g/dl (12.0-16.0); LYMPHOCYTES # (AUTO) 0.8 X10'3 (1.1-4.8); LYMPHOCYTES % (AUTO) 10.1 % (21-51); MEAN CORPUSCULAR HEMOGLOBIN 34.8 PG (27.0-31.0); MEAN CORPUSCULAR HGB CONC 34.1 g/dL (33.0-36.5); MEAN CORPUSCULAR VOLUME 102.1 FL (78-98); MEAN PLATELET VOLUME 7.5 FL (7.4-10.4); MONOCYTES # (AUTO) 0.4 X10'3 (0-0.9); MONOCYTES % (AUTO) 4.9 % (2-12); NEUTROPHILS # (AUTO) 6.8 X10'3 (1.8-7.7); NEUTROPHILS % (AUTO) 84.2 % (42-75); PLATELET COUNT 154 X10'3 (140-440); RED BLOOD COUNT 2.74 X10'6 (4.20-5.60); RED CELL DISTRIBUTION WIDTH 12.7 % (11.5-14.5); WHITE BLOOD COUNT 8.1 X10'3 (4.5-11.0)
[2019-09-05 03:04] LABS: CHOL/HDL RATIO 2.7 (0.00-4.99); CHOLESTEROL 93 MG/DL (0-200); HDL CHOLESTEROL 35 MG/DL (35-60); LDL CHOLESTEROL 38 MG/DL (50-100); TRIGLYCERIDES 127 MG/DL (20-135)
[2019-09-05 06:00] VITALS: BP 119/32
--- NOTE | 2019-09-05 06:10 | NUR ---
Patient in room MED 312. I have received report from ERIC Vegas and had the opportunity to ask questions and assume patient care.
--- NOTE | 2019-09-05 07:01 | NUR ---
pt. has complaints of chest pain. EKG was paged.
--- NOTE | 2019-09-05 07:06 | NUR ---
Problems reprioritized. Patient report given, questions answered & plan of care reviewed with Susie Aguilar.
[2019-09-05 07:30] VITALS: BP_SYST 116
[2019-09-05] MEDS: budesonide 0.5mg/2ml UD nebule IH SCH (07:38)
--- NOTE | 2019-09-05 07:40 | NUR ---
12 lead done and read by LEXIS GUTIERREZ. no STEMI. vital signs stable. Addendum: 09/05/19 at 0753 by Nancy Nice RN EKG done at 0735. and taken to ER immediately afterwards.
[2019-09-05] MEDS ORDERED: aspirin 81mg tablet.DR PO SCH (08:00)
[2019-09-05] MEDS ORDERED: atorvastatin 10mg tablet PO SCH (08:00)
[2019-09-05] MEDS ORDERED: clopidogrel 75mg tablet PO SCH (08:00)
[2019-09-05] MEDS ORDERED: naproxen 375mg tablet PO SCH (08:00)
[2019-09-05] MEDS ORDERED: lisinopril 10 MG tablet PO SCH (08:00)
[2019-09-05 08:47] LABS: ALANINE AMINOTRANSFERASE 16 U/L (12-78); ALBUMIN 3.2 G/DL (3.4-5.0); ALBUMIN/GLOBULIN RATIO 1.5 (1.1-1.5); ALKALINE PHOSPHATASE 61 IU/L (46-116); ANION GAP 13 (8-16); ASPARTATE AMINO TRANSFERASE 18 U/L (10-37); BILIRUBIN,TOTAL 0.2 MG/DL (0.1-1.0); BLOOD UREA NITROGEN 21 MG/DL (7-18); BUN/CREATININE RATIO 16.8 (6.6-38.0); CHLORIDE 106 MMOL/L (99-107); CREATININE 1.25 MG/DL (0.40-0.90); GLUCOSE 123 MG/DL (70-104); SODIUM 137 MMOL/L (135-145); TOTAL CARBON DIOXIDE 18.5 MMOL/L (24-32); TOTAL PROTEIN 5.3 G/DL (6.4-8.2); eGFR 42 ML/MIN
[2019-09-05 08:56] LABS: POTASSIUM 4.3 MMOL/L (3.5-5.1)
[2019-09-05 09:42] LABS: HEMOGLOBIN A1C 6.2 % (4.5-6.2)
[2019-09-05] MEDS: normal saline 1,000 ML IV SCH (10:38)
[2019-09-05] MEDS ORDERED: CLOP75TA35 PO (11:15)
--- NOTE | 2019-09-05 12:45 | NUR ---
Per MD, patient stable for discharge. Prescription called into [facility] in [place]. All belongings gathered and sent with patient and daughter. Discharge paperwork reviewed with and signed by patient. All questions and concerns addressed. Patient transported via WC by nursing staff to personal vehicle. Addendum: 09/05/19 at 1306 by Amairani Nolasco RN PIV removed, TIP intact, pt tolerated well.
--- NOTE | 2019-09-05 16:02 | NUR ---
I have reviewed and agree with all interventions, assessments performed and documented by ERIC Bales.
[2019-09-06] MEDS ORDERED: metFORMIN 500mg tablet PO SCH (08:00)
== END 2019-09-05 12:37 | disposition home or self-care (01) | DRG 36 ==
LOC: SSTAY O 14:09 → S STAY 14:16 → MED 3N 19:44
PROVIDERS: ADMIT Internal Medicine Interventional Cardiology; ATTEND Internal Medicine Interventional Cardiology
PROC: 037J3DZ Dilation of Left Common Carotid Artery with Intraluminal Device, Percutaneous Approach (ICD-10-PCS; principal; 2019-09-04)
DX: I65.22 Occlusion and stenosis of left carotid artery (principal); E11.51 Type 2 diabetes mellitus with diabetic peripheral angiopathy without gangrene; R07.9 Chest pain, unspecified; I70.213 Atherosclerosis of native arteries of extremities with intermittent claudication, bilateral legs; E78.5 Hyperlipidemia, unspecified; F17.211 Nicotine dependence, cigarettes, in remission; Z88.5 Allergy status to narcotic agent; Z88.0 Allergy status to penicillin; Z98.51 Tubal ligation status; Z82.49 Family history of ischemic heart disease and other diseases of the circulatory system
CPT/HCPCS: 36222; 36415; 37215; 70450; 80053; 80061; 82948; 83036; 85025; 85610; 87081; 93005; 94640; 94760; 99152; 99153; A4620; A6258; C1725; C1760; C1769; C1876; C1884; C1887; G0378; J0360; J0461; J1170; J1265; J1644; J2001; J2250; J2370; J2405; J3490; J7030; J7626; Q0163; Q9967

== ENCOUNTER 2021-01-08 14:09 | Inpatient (IN) | payer BC, MEDICAID ==
[~2021-01-08] VITALS: Ht 154.9 cm; Wt 45.0 kg
[~2021-01-08 14:09] MED LIST changes: -ASPI-1265 PO; +ASPI81TA52 PO; +ATOR10TA87 PO; -ATOR20TA66 PO; +CLOP75TA34 PO; -CLOP75TA35 PO; +LISI10TA27 PO; -LISI10TA4 PO; +MELO-100 PO; -PANT40TA4 PO
[2021-01-08 15:03] LABS: BASOPHILS % (AUTO) 0.2 % (0-1); EOSINOPHILS % (AUTO) 0 % (0-6); HEMOGLOBIN 12.6 g/dl (12.0-16.0); LYMPHOCYTES # (AUTO) 0.4 X10'3 (1.1-4.8); LYMPHOCYTES % (AUTO) 2.1 % (21-51); MEAN CORPUSCULAR HEMOGLOBIN 33.7 PG (27.0-31.0); MEAN CORPUSCULAR HGB CONC 33.1 g/dL (33.0-36.5); MEAN CORPUSCULAR VOLUME 101.9 FL (78-98); MEAN PLATELET VOLUME 7.5 FL (7.4-10.4); MONOCYTES # (AUTO) 1.3 X10'3 (0-0.9); MONOCYTES % (AUTO) 7.4 % (2-12); NEUTROPHILS # (AUTO) 16.3 X10'3 (1.8-7.7); NEUTROPHILS % (AUTO) 90.3 % (42-75); PLATELET COUNT 383 X10'3 (140-440); RED BLOOD COUNT 3.73 X10'6 (4.20-5.60); WHITE BLOOD COUNT 18.1 X10'3 (4.5-11.0)
[2021-01-08] MEDS ORDERED: dexamethasone sod phosphate 10mg/ml inj IV STA (15:08)
[2021-01-08 15:19] LABS: ALANINE AMINOTRANSFERASE 21 U/L (12-78); ALBUMIN 2.9 G/DL (3.4-5.0); ALBUMIN/GLOBULIN RATIO 0.6 (1.1-1.5); ALKALINE PHOSPHATASE 159 IU/L (46-116); ANION GAP 17 (8-16); ASPARTATE AMINO TRANSFERASE 16 U/L (10-37); BILIRUBIN,TOTAL 0.5 MG/DL (0.1-1.0); BLOOD UREA NITROGEN 32 MG/DL (7-18); BUN/CREATININE RATIO 20.6 (6.6-38.0); CALCIUM 9.1 MG/DL (8.5-10.1); CHLORIDE 97 MMOL/L (99-107); CREATININE 1.55 MG/DL (0.40-0.90); GLUCOSE 115 MG/DL (70-104); POTASSIUM 5.3 MMOL/L (3.5-5.1); SODIUM 131 MMOL/L (135-145); TOTAL CARBON DIOXIDE 17.4 MMOL/L (24-32); TOTAL PROTEIN 7.4 G/DL (6.4-8.2); eGFR 33 ML/MIN
[2021-01-08] MEDS ORDERED: normal saline 1000ML IV soln IV ONE (15:35)
[2021-01-08] MEDS ORDERED: CefTRIAXone 2gm/D5W 50ml BAG 50 ML IV ONE (15:35)
[2021-01-08 15:48] LABS: PLATELET ESTIMATE NORMAL; TOTAL CELLS COUNTED 100
[2021-01-08] MEDS ORDERED: dextrose 50%-water 50ml dispensing syringe IV PRN ×2 (16:00)
[2021-01-08] MEDS ORDERED: magnesium hydroxide 30ml (MOM) UD suspension PO PRN (16:00)
[2021-01-08] MEDS ORDERED: MESSAGE TO PHARMACY PO ONE (16:00)
[2021-01-08] MEDS ORDERED: dextrose ORAL solution 15 GM/59 ML bottle PO PRN ×2 (16:00)
[2021-01-08] MEDS ORDERED: ondansetron/PF 4mg/2ml inj IV PRN (16:00)
[2021-01-08] MEDS ORDERED: morphine 2 MG/ML inj. syringe IV PRN (16:00)
[2021-01-08] MEDS ORDERED: glucagon, human recombinant 1mg kit SUBCUT PRN (16:00)
[2021-01-08] MEDS ORDERED: acetaminophen 325mg tablet PO PRN ×2 (16:00)
--- NOTE | 2021-01-08 16:59 | NUR ---
Received report from Mar in the ER.
[2021-01-08] MEDS ORDERED: mag hydrox/Alum hydrox/simeth 30ml oral suspension PO PRN (17:50)
[2021-01-08] MEDS: pantoprazole 40mg Tablet.DR PO SCH (17:59)
[2021-01-08] MEDS: HYDROcodone/acetaminophen 5mg/325mg tablet PO PRN ×2 (17:59→22:08)
[2021-01-08 18:00] VITALS: BP 142/65
--- NOTE | 2021-01-08 18:00 | NUR ---
PATIENT HAS PUT HER WALLET WITH OLSEN IN SAFEKEEPING.
[2021-01-08 18:16] LABS: HEMOGLOBIN A1C 6.4 % (4.5-6.2)
--- NOTE | 2021-01-08 18:21 | NUR ---
Problems reprioritized. Patient report given, questions answered & plan of care reviewed with ERIC Hardin.
[2021-01-08 18:53] LABS: CLARITY,URINE CLEAR (Clear); COLOR,URINE YELLOW (Yellow); GLUCOSE, URINE NEGATIVE (Neg); KETONES,URINE 15 mg/dl (Neg); LEUKOCYTE ESTERASE ,URINE NEGATIVE (Neg); NITRITES, URINE NEGATIVE (Neg); OCCULT BLOOD,URINE NEGATIVE (Neg); PH,URINE 5.5 (4.8-8.0); PROTEIN,URINE NEGATIVE (Neg); UROBILINOGEN,URINE 0.2 E.U/dL (0.2-1.0)
[2021-01-08 18:55] LABS: UA COLLECTION TYPE VOIDED
[2021-01-08] MEDS: morphine 2 MG/ML inj. syringe IV PRN (19:55)
[2021-01-08] MEDS: albuterol 2.5 MG/3 ML nebule NEB SCH (20:05)
[2021-01-08] MEDS: budesonide 0.5mg/2ml UD nebule IH SCH (20:05)
[2021-01-08] MEDS: insulin glargine (Lantus) pen - multi-dose SQ SCH (21:26)
[2021-01-08] MEDS: mag hydrox/Alum hydrox/simeth 30ml oral suspension PO PRN (21:27)
[2021-01-08 23:27] VITALS: BP 150/51
[2021-01-09] MEDS: morphine 2 MG/ML inj. syringe IV PRN ×5 (00:20→22:59)
[2021-01-09] MEDS: albuterol 2.5 MG/3 ML nebule NEB SCH ×4 (02:15→20:02)
[2021-01-09] MEDS: HYDROcodone/acetaminophen 5mg/325mg tablet PO PRN ×3 (02:26→20:41)
--- NOTE | 2021-01-09 06:28 | NUR ---
Problems reprioritized. Patient report given, questions answered & plan of care reviewed with Bessy RN's.
--- NOTE | 2021-01-09 06:45 | NUR ---
Patient in room RED 344. I have received report from ERIC Hardin and had the opportunity to ask questions and assume patient care.
[2021-01-09 07:37] LABS: BASOPHILS % (AUTO) 0.1 % (0-1); EOSINOPHILS % (AUTO) 0 % (0-6); HEMATOCRIT 30.3 % (35.0-45.0); HEMOGLOBIN 10.1 g/dl (12.0-16.0); LYMPHOCYTES # (AUTO) 0.2 X10'3 (1.1-4.8); LYMPHOCYTES % (AUTO) 1.8 % (21-51); MEAN CORPUSCULAR HEMOGLOBIN 33.8 PG (27.0-31.0); MEAN CORPUSCULAR HGB CONC 33.3 g/dL (33.0-36.5); MEAN CORPUSCULAR VOLUME 101.4 FL (78-98); MEAN PLATELET VOLUME 7.8 FL (7.4-10.4); MONOCYTES # (AUTO) 0.2 X10'3 (0-0.9); MONOCYTES % (AUTO) 1.7 % (2-12); NEUTROPHILS # (AUTO) 11.8 X10'3 (1.8-7.7); NEUTROPHILS % (AUTO) 96.4 % (42-75); PLATELET COUNT 342 X10'3 (140-440); RED BLOOD COUNT 2.98 X10'6 (4.20-5.60); WHITE BLOOD COUNT 12.2 X10'3 (4.5-11.0)
[2021-01-09] MEDS: budesonide 0.5mg/2ml UD nebule IH SCH ×2 (07:41→20:02)
[2021-01-09] MEDS: aspirin 81mg tablet.DR PO SCH (07:54)
[2021-01-09] MEDS: lisinopril 10 MG tablet PO SCH (07:55)
[2021-01-09] MEDS: pantoprazole 40mg Tablet.DR PO SCH (07:55)
[2021-01-09] MEDS: clopidogrel 75mg tablet PO SCH (07:55)
[2021-01-09] MEDS: CefTRIAXone/D5W-Rocephin 1gm 50 ML IV SCH (07:56)
[2021-01-09 08:00] VITALS: BP 168/56
[2021-01-09] MEDS ORDERED: enoxaparin 40mg/0.4ml syringe SUBCUT SCH (08:00)
[2021-01-09] MEDS ORDERED: non-formulary drug (Budesonide/Formoterol Fumarate (Symbicort 160-4.5 Mcg Inhaler) 1 PUFF) INH SCH (08:00)
[2021-01-09 08:18] LABS: ALBUMIN 2.3 G/DL (3.4-5.0); ANION GAP 17 (8-16); BLOOD UREA NITROGEN 38 MG/DL (7-18); BUN/CREATININE RATIO 29.2 (6.6-38.0); CALCIUM 8.9 MG/DL (8.5-10.1); CHLORIDE 99 MMOL/L (99-107); GLUCOSE 180 MG/DL (70-104); POTASSIUM 5.1 MMOL/L (3.5-5.1); SODIUM 132 MMOL/L (135-145); TOTAL CARBON DIOXIDE 15.6 MMOL/L (24-32); eGFR 40 ML/MIN
[2021-01-09] MEDS: azithromycin/NS 500mg/250ml 250 ML IV SCH (08:59)
--- NOTE | 2021-01-09 09:29 | NUR ---
Noted that pt with a low BMI for age. Though current documented wt isn't scaled it is stable with documented scaled weight in September 2019. Pt denied wt loss during malnutrition risk screen with RN this admit. Pt likely chronically small in stature. Pt on a CHO controlled diet documented with 50% PO intake first meal. No documented decrease in muscle strength or edema. No concerns for malnutrition at this time. Will continue to follow. Addendum: 01/09/21 at [address] Amended: Links added.
[2021-01-09] MEDS: insulin Lispro (HumaLOG) vial - multi-dose SQ SCH ×3 (10:02→18:39)
[2021-01-09 11:00] VITALS: BP 135/55
[2021-01-09] MEDS: mag hydrox/Alum hydrox/simeth 30ml oral suspension PO PRN (14:19)
--- NOTE | 2021-01-09 18:23 | NUR ---
Patient in room RED 344. I have received report from Reagan/ERIC Pascual'S and had the opportunity to ask questions and assume patient care.
[2021-01-09 18:28] VITALS: BP 106/85
--- NOTE | 2021-01-09 18:52 | NUR ---
Orientee documentation: I have reviewed and agree with all interventions, assessments performed and documented by EIRC Marcano . Orientee Medication Administration: For this medication-pass time frame, all medication were reviewed, dispensed, administered and documented per hospital policy by ERIC Marcano.
--- NOTE | 2021-01-09 19:01 | NUR ---
Problems reprioritized. Patient report given, questions answered & plan of care reviewed with ERIC Hardin.
[2021-01-09] MEDS: lactobacillus rhamnosus 10,000 MMU CELLS/CAPSULE PO SCH (20:41)
[2021-01-09] MEDS: insulin glargine (Lantus) pen - multi-dose SQ SCH (20:44)
[2021-01-09 23:31] VITALS: BP 140/80
[2021-01-10] MEDS: mag hydrox/Alum hydrox/simeth 30ml oral suspension PO PRN (00:38)
[2021-01-10] MEDS: albuterol 2.5 MG/3 ML nebule NEB SCH ×4 (02:25→19:57)
--- NOTE | 2021-01-10 02:43 | NUR ---
SPOKE WITH RESPIRATORY THERAPIST MARIBELL, HE STATES PATIENT HAD HER OXYGEN OFF AND WAS 96% ON ROOM AIR. HE DISCUSSED WITH PATIENT THAT SHE DIDN'T NEED THE OXYGEN AT THIS TIME BUT THAT WE WOULD KEEP IT RIGHT THERE IN CASE SHE DOES.
[2021-01-10 06:17] LABS: BASOPHILS % (AUTO) 0.1 % (0-1); EOSINOPHILS % (AUTO) 0 % (0-6); HEMATOCRIT 31.5 % (35.0-45.0); HEMOGLOBIN 10.5 g/dl (12.0-16.0); LYMPHOCYTES # (AUTO) 0.4 X10'3 (1.1-4.8); LYMPHOCYTES % (AUTO) 2.5 % (21-51); MEAN CORPUSCULAR HEMOGLOBIN 33.6 PG (27.0-31.0); MEAN CORPUSCULAR HGB CONC 33.4 g/dL (33.0-36.5); MEAN CORPUSCULAR VOLUME 100.5 FL (78-98); MEAN PLATELET VOLUME 7.2 FL (7.4-10.4); MONOCYTES # (AUTO) 0.6 X10'3 (0-0.9); MONOCYTES % (AUTO) 3.4 % (2-12); NEUTROPHILS # (AUTO) 15.8 X10'3 (1.8-7.7); PLATELET COUNT 432 X10'3 (140-440); RED BLOOD COUNT 3.13 X10'6 (4.20-5.60); RED CELL DISTRIBUTION WIDTH 13.4 % (11.5-14.5); WHITE BLOOD COUNT 16.9 X10'3 (4.5-11.0)
[2021-01-10 06:35] LABS: ALBUMIN 2.6 G/DL (3.4-5.0); ANION GAP 11 (8-16); BLOOD UREA NITROGEN 41 MG/DL (7-18); BUN/CREATININE RATIO 33.6 (6.6-38.0); CALCIUM 9.6 MG/DL (8.5-10.1); CHLORIDE 102 MMOL/L (99-107); CREATININE 1.22 MG/DL (0.40-0.90); GLUCOSE 150 MG/DL (70-104); POTASSIUM 5.2 MMOL/L (3.5-5.1); SODIUM 135 MMOL/L (135-145); TOTAL CARBON DIOXIDE 22.3 MMOL/L (24-32); eGFR 43 ML/MIN
--- NOTE | 2021-01-10 06:40 | NUR ---
Patient in room RED 344. I have received report from ERIC Patel and had the opportunity to ask questions and assume patient care.
[2021-01-10] MEDS: aspirin 81mg tablet.DR PO SCH (07:32)
[2021-01-10] MEDS: pantoprazole 40mg Tablet.DR PO SCH (07:33)
[2021-01-10] MEDS: CefTRIAXone/D5W-Rocephin 1gm 50 ML IV SCH (07:33)
[2021-01-10] MEDS: clopidogrel 75mg tablet PO SCH (07:33)
[2021-01-10] MEDS: lactobacillus rhamnosus 10,000 MMU CELLS/CAPSULE PO SCH ×3 (07:33→19:45)
[2021-01-10] MEDS: lisinopril 10 MG tablet PO SCH (07:33)
[2021-01-10] MEDS: enoxaparin 30mg/0.3ml syringe SUBCUT SCH (07:34)
[2021-01-10] MEDS: budesonide 0.5mg/2ml UD nebule IH SCH ×2 (07:51→19:57)
[2021-01-10 08:00] VITALS: BP 150/52
[2021-01-10] MEDS: azithromycin/NS 500mg/250ml 250 ML IV SCH (08:49)
[2021-01-10] MEDS: morphine 2 MG/ML inj. syringe IV PRN ×2 (09:18→19:42)
[2021-01-10] MEDS: insulin Lispro (HumaLOG) vial - multi-dose SQ SCH ×2 (10:09→19:36)
[2021-01-10 11:00] VITALS: BP 158/69
[2021-01-10] MEDS: benzonatate 100mg capsule PO PRN ×2 (12:16→21:40)
--- NOTE | 2021-01-10 12:49 | NUR ---
Checked BG at 1215 and it was 66. Rechecked and it was 65. Followed hypoglycemia protocol and gave the patient Glucose Shot. Rechecked BG at 1240 and it was 140.
[2021-01-10 18:30] VITALS: BP 171/65
--- NOTE | 2021-01-10 18:30 | NUR ---
Patient in room RED 344. I have received report from Krys REYES and had the opportunity to ask questions and assume patient care.
--- NOTE | 2021-01-10 19:06 | NUR ---
Orientee documentation: I have reviewed and agree with all interventions, assessments performed and documented by ERIC Marcano. Orientee Medication Administration: For this medication-pass time frame, all medication were reviewed, dispensed, administered and documented per hospital policy by ERIC Marcano.
--- NOTE | 2021-01-10 19:39 | NUR ---
Problems reprioritized. Patient report given, questions answered & plan of care reviewed with ERIC Fernandez.
[2021-01-10] MEDS: insulin glargine (Lantus) pen - multi-dose SQ SCH (21:48)
[2021-01-11] MEDS: morphine 2 MG/ML inj. syringe IV PRN ×2 (00:17→09:29)
[2021-01-11] MEDS ORDERED: lisinopril 5mg tablet PO ONE (00:25)
[2021-01-11 00:30] VITALS: BP 194/69
--- NOTE | 2021-01-11 00:30 | NUR ---
Despite pain medication, pt's BP running high. New order for 1 x dose 5mg lisinopril obtained. Patient denies any headache or blurriness. Will continue to monitor.
[2021-01-11] MEDS ORDERED: morphine 2 MG/ML inj. syringe IV ONE (00:50)
[2021-01-11] MEDS: albuterol 2.5 MG/3 ML nebule NEB SCH ×4 (02:52→20:08)
[2021-01-11 05:15] VITALS: BP 149/58
[2021-01-11] MEDS: benzonatate 100mg capsule PO PRN ×3 (05:20→19:30)
[2021-01-11] MEDS: HYDROcodone/acetaminophen 5mg/325mg tablet PO PRN ×3 (05:21→19:31)
[2021-01-11 05:59] LABS: BASOPHILS % (AUTO) 0.1 % (0-1); EOSINOPHILS % (AUTO) 0.2 % (0-6); HEMOGLOBIN 10.1 g/dl (12.0-16.0); LYMPHOCYTES # (AUTO) 0.9 X10'3 (1.1-4.8); MEAN CORPUSCULAR HEMOGLOBIN 33.8 PG (27.0-31.0); MEAN CORPUSCULAR HGB CONC 33.8 g/dL (33.0-36.5); MEAN CORPUSCULAR VOLUME 100.1 FL (78-98); MEAN PLATELET VOLUME 7.2 FL (7.4-10.4); MONOCYTES # (AUTO) 0.7 X10'3 (0-0.9); MONOCYTES % (AUTO) 5.7 % (2-12); NEUTROPHILS # (AUTO) 10.6 X10'3 (1.8-7.7); PLATELET COUNT 396 X10'3 (140-440); RED CELL DISTRIBUTION WIDTH 13.1 % (11.5-14.5); WHITE BLOOD COUNT 12.1 X10'3 (4.5-11.0)
[2021-01-11 06:10] LABS: ALBUMIN 2.5 G/DL (3.4-5.0); ANION GAP 10 (8-16); CALCIUM 8.4 MG/DL (8.5-10.1); CHLORIDE 102 MMOL/L (99-107); CREATININE 1.08 MG/DL (0.40-0.90); GLUCOSE 92 MG/DL (70-104); POTASSIUM 5.1 MMOL/L (3.5-5.1); SODIUM 137 MMOL/L (135-145); TOTAL CARBON DIOXIDE 25.5 MMOL/L (24-32); eGFR 49 ML/MIN
[2021-01-11 06:18] LABS: BLOOD UREA NITROGEN 32 MG/DL (7-18); BUN/CREATININE RATIO 29.6 (6.6-38.0)
--- NOTE | 2021-01-11 06:50 | NUR ---
Problems reprioritized. Patient report given, questions answered & plan of care reviewed with Mo REYES.
--- NOTE | 2021-01-11 06:53 | NUR ---
Patient in room RED 344. I have received report from Rebecca REYES and had the opportunity to ask questions and assume patient care.
[2021-01-11 07:00] VITALS: BP 166/45
--- NOTE | 2021-01-11 07:02 | NUR ---
Patient blood sugar this am was 75mg/dl, patient denies any symptoms of hypogylcemia. I offered juice and crackers, she declined it. I advised patient to not skip her breakfast as the blood sugar can go down lower than the current reading of 75.
[2021-01-11] MEDS: CefTRIAXone/D5W-Rocephin 1gm 50 ML IV SCH (09:28)
[2021-01-11] MEDS: aspirin 81mg tablet.DR PO SCH (09:29)
[2021-01-11] MEDS: pantoprazole 40mg Tablet.DR PO SCH (09:30)
[2021-01-11] MEDS: clopidogrel 75mg tablet PO SCH (09:30)
[2021-01-11] MEDS: enoxaparin 30mg/0.3ml syringe SUBCUT SCH (09:35)
[2021-01-11] MEDS: azithromycin/NS 500mg/250ml 250 ML IV SCH (09:40)
[2021-01-11] MEDS: lactobacillus rhamnosus 10,000 MMU CELLS/CAPSULE PO SCH ×2 (09:47→19:30)
[2021-01-11] MEDS: budesonide 0.5mg/2ml UD nebule IH SCH ×2 (10:15→20:08)
--- NOTE | 2021-01-11 10:35 | NUR ---
I notified Dr. Monsivais about K of 5.1 today, I clarified about giving Lisinopril, he said its fine.
[2021-01-11] MEDS: lisinopril 10 MG tablet PO SCH (10:37)
[2021-01-11 11:00] VITALS: BP 118/84
--- NOTE | 2021-01-11 18:24 | NUR ---
Problems reprioritized. Patient report given, questions answered & plan of care reviewed with Armen REYES.
[2021-01-11 18:30] VITALS: BP 168/78
[2021-01-11] MEDS: insulin glargine (Lantus) pen - multi-dose SQ SCH (21:00)
[2021-01-12] MEDS: benzonatate 100mg capsule PO PRN ×2 (01:03→08:06)
[2021-01-12] MEDS: HYDROcodone/acetaminophen 5mg/325mg tablet PO PRN ×2 (01:06→08:05)
[2021-01-12] MEDS: albuterol 2.5 MG/3 ML nebule NEB SCH ×2 (03:00→07:34)
[2021-01-12 06:07] LABS: BASOPHILS % (AUTO) 0.1 % (0-1); EOSINOPHILS # (AUTO) 0.1 X10'3 (0-0.9); EOSINOPHILS % (AUTO) 0.8 % (0-6); HEMATOCRIT 34.1 % (35.0-45.0); HEMOGLOBIN 11.4 g/dl (12.0-16.0); LYMPHOCYTES % (AUTO) 10.8 % (21-51); MEAN CORPUSCULAR HEMOGLOBIN 33.6 PG (27.0-31.0); MEAN CORPUSCULAR HGB CONC 33.4 g/dL (33.0-36.5); MEAN CORPUSCULAR VOLUME 100.7 FL (78-98); MEAN PLATELET VOLUME 7.1 FL (7.4-10.4); MONOCYTES # (AUTO) 0.6 X10'3 (0-0.9); MONOCYTES % (AUTO) 6.8 % (2-12); NEUTROPHILS # (AUTO) 7.4 X10'3 (1.8-7.7); NEUTROPHILS % (AUTO) 81.5 % (42-75); PLATELET COUNT 395 X10'3 (140-440); RED BLOOD COUNT 3.39 X10'6 (4.20-5.60); RED CELL DISTRIBUTION WIDTH 13.1 % (11.5-14.5); WHITE BLOOD COUNT 9.1 X10'3 (4.5-11.0)
[2021-01-12 06:08] LABS: ALBUMIN 2.5 G/DL (3.4-5.0); ANION GAP 6 (8-16); BLOOD UREA NITROGEN 25 MG/DL (7-18); BUN/CREATININE RATIO 25.3 (6.6-38.0); CALCIUM 8.4 MG/DL (8.5-10.1); CHLORIDE 102 MMOL/L (99-107); CREATININE 0.99 MG/DL (0.40-0.90); GLUCOSE 89 MG/DL (70-104); POTASSIUM 5.4 MMOL/L (3.5-5.1); SODIUM 135 MMOL/L (135-145); TOTAL CARBON DIOXIDE 26.8 MMOL/L (24-32); eGFR 55 ML/MIN
--- NOTE | 2021-01-12 06:25 | NUR ---
Patient in room RED 344. I have received report from Armen REYES and had the opportunity to ask questions and assume patient care.
--- NOTE | 2021-01-12 06:30 | NUR ---
Problems reprioritized. Patient report given, questions answered & plan of care reviewed with MYLES.
[2021-01-12] MEDS: budesonide 0.5mg/2ml UD nebule IH SCH (07:33)
[2021-01-12] MEDS ORDERED: azithromycin 250mg tablet PO SCH (08:00)
[2021-01-12] MEDS: enoxaparin 30mg/0.3ml syringe SUBCUT SCH (08:04)
[2021-01-12] MEDS: pantoprazole 40mg Tablet.DR PO SCH (08:04)
[2021-01-12 08:05] VITALS: BP_SYST 152
[2021-01-12] MEDS: lisinopril 10 MG tablet PO SCH (08:05)
[2021-01-12] MEDS: lactobacillus rhamnosus 10,000 MMU CELLS/CAPSULE PO SCH (08:05)
[2021-01-12] MEDS: clopidogrel 75mg tablet PO SCH (08:06)
[2021-01-12] MEDS: aspirin 81mg tablet.DR PO SCH (08:06)
[2021-01-12] MEDS: CefTRIAXone/D5W-Rocephin 1gm 50 ML IV SCH (08:06)
[2021-01-12] MEDS ORDERED: LEVO750T46 PO (09:17)
--- NOTE | 2021-01-12 13:11 | NUR ---
Patient was educated on follow up care, when to return to the ER, and medications. IV was removed and canula was intact. Patient was taken down and left with daughter.
--- NOTE | 2021-01-13 15:49 | NUR ---
CASE MANAGEMENT DISCHARGE FOLLOW UP: Spoke with pt via telephone. Reports that she is doing okay, feeling weak/tired, has productive cough which she states is improving; denies CP, SOB, fever/chills. Verbalizes understanding of s/sx requiring further evaluation/emergent assistance. Verbalizes understanding of new and current medications. Verbalizes compliance with MD discharge instructions. Verbalizes understanding of the importance in making/keeping follow-up appointments, has an appointment already scheduled with PCP for the of this month, but is going to call to see if she can get in sooner. States no further questions/concerns at this time.
== END 2021-01-12 11:35 | disposition home health service (06) | DRG 193 ==
LOC: ER 14:10 → ED HOLD 16:00 → EDBEDREQ 16:34 → SUR 3N 18:22
PROVIDERS: ADMIT Internal Medicine; ATTEND Internal Medicine
DX: J18.9 Pneumonia, unspecified organism (principal); J96.01 Acute respiratory failure with hypoxia; J44.0 Chronic obstructive pulmonary disease with (acute) lower respiratory infection; J44.1 Chronic obstructive pulmonary disease with (acute) exacerbation; N17.9 Acute kidney failure, unspecified; E11.65 Type 2 diabetes mellitus with hyperglycemia; N18.30 Chronic kidney disease, stage 3 unspecified; I12.9 Hypertensive chronic kidney disease with stage 1 through stage 4 chronic kidney disease, or unspecified chronic kidney disease; E78.00 Pure hypercholesterolemia, unspecified; Z20.822 Contact with and (suspected) exposure to COVID-19; E11.22 Type 2 diabetes mellitus with diabetic chronic kidney disease; Z86.73 Personal history of transient ischemic attack (TIA), and cerebral infarction without residual deficits; Z90.710 Acquired absence of both cervix and uterus; Z90.49 Acquired absence of other specified parts of digestive tract; Z87.891 Personal history of nicotine dependence; Z88.0 Allergy status to penicillin; Z88.1 Allergy status to other antibiotic agents; Z88.6 Allergy status to analgesic agent; Z79.02 Long term (current) use of antithrombotics/antiplatelets
CPT/HCPCS: 36415; 71045; 80048; 80053; 81003; 82948; 83036; 83605; 83880; 84145; 84484; 85007; 85025; 87040; 87070; 87081; 87635; 93005; 94640; 94760; 96365; 97116; 97161; 97530; 99285; C9803; G0378; J0456; J0696; J1100; J1650; J1815; J2270; J7030; J7626

== ENCOUNTER 2022-03-20 17:02 | Inpatient (IN) | payer OTHER, MEDICAID ==
[~2022-03-20] VITALS: Ht 154.9 cm; Wt 43.1 kg
[~2022-03-20 17:02] MED LIST changes: +ALBU8.5H17 INH; -ALBU8.5H8 INH; -ATOR10TA87 PO
[2022-03-20 18:36] LABS: BASOPHILS # (AUTO) 0.1 X10'3 (0-0.2); BASOPHILS % (AUTO) 0.4 % (0-1); EOSINOPHILS # (AUTO) 0.1 X10'3 (0-0.9); EOSINOPHILS % (AUTO) 0.6 % (0-6); LYMPHOCYTES % (AUTO) 7.2 % (21-51); MEAN CORPUSCULAR HEMOGLOBIN 33.3 PG (27.0-31.0); MEAN CORPUSCULAR HGB CONC 33.3 g/dL (33.0-36.5); MEAN PLATELET VOLUME 7.4 FL (7.4-10.4); MONOCYTES # (AUTO) 0.5 X10'3 (0-0.9); MONOCYTES % (AUTO) 3.9 % (2-12); NEUTROPHILS # (AUTO) 12.4 X10'3 (1.8-7.7); NEUTROPHILS % (AUTO) 87.9 % (42-75); PLATELET COUNT 368 X10'3 (140-440); RED BLOOD COUNT 2.02 X10'6 (4.20-5.60); RED CELL DISTRIBUTION WIDTH 12.7 % (11.5-14.5); WHITE BLOOD COUNT 14.1 X10'3 (4.5-11.0)
[2022-03-20 18:47] LABS: HEMATOCRIT 20.2 % (35.0-45.0); HEMOGLOBIN 6.7 g/dl (12.0-16.0)
[2022-03-20 18:58] LABS: ALANINE AMINOTRANSFERASE 13 U/L (12-78); ALBUMIN 3.1 G/DL (3.4-5.0); ALKALINE PHOSPHATASE 60 IU/L (46-116); ANION GAP 10 (8-16); ASPARTATE AMINO TRANSFERASE 13 U/L (10-37); BILIRUBIN,TOTAL 0.1 MG/DL (0.1-1.0); BLOOD UREA NITROGEN 63 MG/DL (7-18); BUN/CREATININE RATIO 40.4 (6.6-38.0); CALCIUM 8.4 MG/DL (8.5-10.1); CHLORIDE 104 MMOL/L (99-107); CREATININE 1.56 MG/DL (0.40-0.90); GLUCOSE 152 MG/DL (70-104); SODIUM 138 MMOL/L (135-145); TOTAL CARBON DIOXIDE 24.4 MMOL/L (24-32); TOTAL PROTEIN 6.1 G/DL (6.4-8.2); eGFR 32 ML/MIN
[2022-03-20] MEDS ORDERED: pantoprazole IV 80 MG in normal saline 100ml IV soln 100 ML IV ONE (19:05)
[2022-03-20 19:06] LABS: POTASSIUM 7.1 MMOL/L (3.5-5.1)
[2022-03-20] MEDS ORDERED: calcium chloride 100 MG/1 ML inj IV ONE (19:10)
[2022-03-20] MEDS ORDERED: normal saline 1000ml 1,000 ML IV ONE (19:10)
[2022-03-20] MEDS ORDERED: insulin regular, human 10 units/0.1 ml syringe IV ONE ×2 (19:10→20:25)
[2022-03-20] MEDS ORDERED: dextrose 50%-water 50ml dispensing syringe IV ONE ×2 (19:10→20:25)
[2022-03-20] MEDS ORDERED: ondansetron/PF 4mg/2ml inj IV ONE (20:00)
[2022-03-20] MEDS ORDERED: POTASSIUM BICARB 20meq eff tab 20 MEQ TABLET.EFF PO PRN (20:15)
[2022-03-20] MEDS ORDERED: magnesium 2GM in 50ml NS 50 ML IV PRN (20:15)
[2022-03-20] MEDS ORDERED: bisacodyl 10mg suppository rectal RC PRN (20:15)
[2022-03-20] MEDS ORDERED: ondansetron/PF 4mg/2ml inj IV PRN (20:15)
[2022-03-20] MEDS ORDERED: acetaminophen 325mg tablet PO PRN ×2 (20:15)
[2022-03-20] MEDS ORDERED: potassium CL 10mEq/100ml bag 100 ML IV PRN (20:15)
[2022-03-20] MEDS ORDERED: magnesium 4gm in 100ml NS 100 ML IV PRN (20:15)
[2022-03-20] MEDS ORDERED: mag hydrox/Alum hydrox/simeth 30ml oral suspension PO PRN (20:15)
[2022-03-20] MEDS ORDERED: magnesium Cl slow-release 64mg tablet PO PRN (20:15)
[2022-03-20] MEDS ORDERED: magnesium hydroxide 30ml (MOM) UD suspension PO PRN (20:15)
[2022-03-20] MEDS ORDERED: ondansetron 4mg rapidly disintigrating tab PO PRN (20:15)
[2022-03-20] MEDS ORDERED: diphenhydrAMINE 25mg capsule PO PRN (20:15)
[2022-03-20] MEDS ORDERED: diphenhydrAMINE 50 mg/ml inj IV PRN (20:15)
[2022-03-20] MEDS ORDERED: sodium bicarbonate (8.4%) 1 mEq/ml syringe IV ONE (20:25)
[2022-03-20] MEDS ORDERED: DEXTROSE 15 GM of carb/4 tabs (each vial/BOTTLE has 4 tablets) PO PRN ×2 (20:25)
[2022-03-20] MEDS ORDERED: dextrose 50%-water 50ml dispensing syringe IV PRN ×2 (20:25)
[2022-03-20] MEDS ORDERED: MESSAGE TO PHARMACY PO ONE (20:25)
[2022-03-20] MEDS ORDERED: glucagon, human recombinant 1mg kit SUBCUT PRN (20:25)
[2022-03-20] MEDS ORDERED: insulin Lispro (HumaLOG) vial - multi-dose SQ SCH (20:25)
[2022-03-20] MEDS ORDERED: sodium polystyrene sulfonate 15gm/60ml oral suspension PO ONE (20:25)
[2022-03-20] MEDS ORDERED: CALCIUM GLUC 1gm/50ml NACL,iso 50 ML IV PRN (20:25)
[2022-03-20] MEDS ORDERED: fentaNYL/PF 50MCG/1 ML 2ML syringe IV ONE (20:30)
[2022-03-20] MEDS: pantoprazole 40MG/NS 100ML BAG 100 ML IV SCH (21:00)
[2022-03-20] MEDS ORDERED: pantoprazole 40MG/NS 100ML BAG 100 ML IV SCH (21:00)
[2022-03-20] MEDS: morphine 2 MG/ML inj. syringe IV PRN (21:19)
[2022-03-20] MEDS: normal saline 1000ml 1,000 ML IV SCH (21:22)
[2022-03-20 21:48] LABS: MAGNESIUM 2.5 MG/DL (1.5-2.4); PHOSPHORUS 3.7 MG/DL (2.3-4.5); POTASSIUM 4.7 MMOL/L (3.5-5.1)
[2022-03-20] MEDS ORDERED: ATOR10TA87 PO (21:56)
[2022-03-20 22:02] LABS: HEMOGLOBIN A1C 6.3 % (4.5-6.2)
[2022-03-20 22:02] LABS: CLARITY,URINE CLEAR (Clear); COLOR,URINE YELLOW (Yellow); GLUCOSE, URINE 250 mg/dl (Neg); KETONES,URINE NEGATIVE (Neg); LEUKOCYTE ESTERASE ,URINE NEGATIVE (Neg); NITRITES, URINE NEGATIVE (Neg); OCCULT BLOOD,URINE NEGATIVE (Neg); PH,URINE 6.5 (4.8-8.0); PROTEIN,URINE NEGATIVE (Neg); UROBILINOGEN,URINE 0.2 E.U/dL (0.2-1.0)
[2022-03-20 22:08] LABS: UA COLLECTION TYPE VOIDED
--- NOTE | 2022-03-20 22:46 | NUR ---
CONSULTED WITH DR WEN REGARDING PT PAIN SURFACING QUICKLY AFTER MORHPINE. HE STATES VERBAL ORDER FOR Q1 HR 1MG MORPHINE PRN
[2022-03-20] MEDS ORDERED: morphine 4 MG/ML inj SYRINge IV PRN (22:50)
--- NOTE | 2022-03-20 23:07 | NUR ---
Patient in room ED 13. I have received report from dacia thomas analytical manager and had the opportunity to ask questions and assume patient care. Addendum: 03/20/22 at 2308 by Annette Julian RN Amended: Links added.
[2022-03-20 23:45] VITALS: BP 136/31
[2022-03-21] VITALS (16 sets, daily range): BP systolic 119–172; BP diastolic 39–97
[2022-03-21] MEDS: temazepam 15mg capsule PO PRN (00:23)
--- NOTE | 2022-03-21 00:28 | NUR ---
MEDICATED WITH MORPHINE FOR COMPLAINT OF PAIN. ABD BACK, CHEST.
[2022-03-21] MEDS: pantoprazole 40MG/NS 100ML BAG 100 ML IV SCH ×5 (01:58→21:00)
[2022-03-21] MEDS: morphine 2 MG/ML inj. syringe IV PRN ×2 (04:46→08:07)
[2022-03-21] MEDS: normal saline 1000ml 1,000 ML IV SCH (04:47)
--- NOTE | 2022-03-21 04:52 | NUR ---
AWOKE WITH EPIGASTRIC TYPE PAIN 05/11 MEDICATED WITH MORPHINE FOR THIS.
--- NOTE | 2022-03-21 05:55 | NUR ---
BLOOD INFUSION ALMOST COMPLETED
--- NOTE | 2022-03-21 06:30 | NUR ---
Patient in room PCU 3027. I have received report from FAUSTO REYES and had the opportunity to ask questions and assume patient care.
--- NOTE | 2022-03-21 06:37 | NUR ---
Problems reprioritized. Patient report given, questions answered & plan of care reviewed with ERIC NAIR. Addendum: 03/21/22 at 0637 by Annette Julian RN Amended: Links added.
[2022-03-21 06:49] LABS: BASOPHILS % (AUTO) 0.4 % (0-1); EOSINOPHILS # (AUTO) 0.1 X10'3 (0-0.9); HEMATOCRIT 24.8 % (35.0-45.0); HEMOGLOBIN 8.6 g/dl (12.0-16.0); LYMPHOCYTES # (AUTO) 1.1 X10'3 (1.1-4.8); LYMPHOCYTES % (AUTO) 14.6 % (21-51); MEAN CORPUSCULAR HGB CONC 34.6 g/dL (33.0-36.5); MEAN CORPUSCULAR VOLUME 98.4 FL (78-98); MEAN PLATELET VOLUME 7.6 FL (7.4-10.4); MONOCYTES # (AUTO) 0.4 X10'3 (0-0.9); MONOCYTES % (AUTO) 6.1 % (2-12); NEUTROPHILS # (AUTO) 5.6 X10'3 (1.8-7.7); NEUTROPHILS % (AUTO) 76.9 % (42-75); PLATELET COUNT 248 X10'3 (140-440); RED BLOOD COUNT 2.52 X10'6 (4.20-5.60); RED CELL DISTRIBUTION WIDTH 12.9 % (11.5-14.5); WHITE BLOOD COUNT 7.3 X10'3 (4.5-11.0)
--- NOTE | 2022-03-21 07:00 | NUR ---
protonix IV infusion found not infusing, bag was empty and pump off. NOC nurse did not report any reason for this, so I am unable to determine how long it was off.
[2022-03-21 07:05] LABS: ALANINE AMINOTRANSFERASE 12 U/L (12-78); ALBUMIN 2.6 G/DL (3.4-5.0); ALKALINE PHOSPHATASE 52 IU/L (46-116); ANION GAP 8 (8-16); ASPARTATE AMINO TRANSFERASE 17 U/L (10-37); BILIRUBIN,TOTAL 0.9 MG/DL (0.1-1.0); BLOOD UREA NITROGEN 43 MG/DL (7-18); BUN/CREATININE RATIO 34.1 (6.6-38.0); CALCIUM 8.1 MG/DL (8.5-10.1); CHLORIDE 112 MMOL/L (99-107); CREATININE 1.26 MG/DL (0.40-0.90); GLUCOSE 106 MG/DL (70-104); MAGNESIUM 2.2 MG/DL (1.5-2.4); POTASSIUM 5.1 MMOL/L (3.5-5.1); SODIUM 145 MMOL/L (135-145); TOTAL CARBON DIOXIDE 25.2 MMOL/L (24-32); TOTAL PROTEIN 5.1 G/DL (6.4-8.2); eGFR 41 ML/MIN
[2022-03-21] MEDS: docusate sod 100mg capsule PO SCH ×2 (08:00→20:00)
[2022-03-21] MEDS: K and/or MAG REPLACEMENT MC SCH ×2 (08:00→20:00)
[2022-03-21 08:18] LABS: OCCULT BLOOD STOOL POSITIVE (Neg)
--- NOTE | 2022-03-21 09:37 | NUR ---
Diabetes consult: Noted pt w/ hx of DM A1c 6.3 well controlled and appropriate. DM ed not indicated at this time. Noted that pt with a low BMI for age. Current scaled wt is stable with documented scaled weight in September 2019. Pt likely chronically small in stature. Currently NPO r/t GI bleed. No documented decrease in muscle strength or edema. No concerns for malnutrition at this time. Will continue to follow. Addendum: 03/21/22 at [address] Amended: Links added.
[2022-03-21] MEDS: PATIROMER CALCIUM SORBITEX 8.4 GM POWD.PACK PO SCH (10:28)
[2022-03-21] MEDS ORDERED: MIDAZolam 1 MG/ML 5ML VIAL ONE (14:59)
[2022-03-21] MEDS ORDERED: fentaNYL/PF 50MCG/1 ML 2ML syringe ONE (14:59)
[2022-03-21] MEDS ORDERED: diphenhydrAMINE 50 mg/ml inj ONE (15:00)
[2022-03-21] MEDS ORDERED: LIDOcaine Viscous 15ml cup ONE (15:00)
--- NOTE | 2022-03-21 17:51 | NUR ---
patient in GI LAB unable to complete Blood Glucose check, will report to NOC shift.
--- NOTE | 2022-03-21 18:02 | NUR ---
received report from GI lab. Patient will be returning soon, will notify oncoming NOC nurse
--- NOTE | 2022-03-21 18:56 | NUR ---
Patient in room PCU 3027. I have received report from Grupo REYES and had the opportunity to ask questions and assume patient care.
[2022-03-21] MEDS: albuterol 2.5 MG/3 ML nebule NEB SCH (20:00)
[2022-03-21] MEDS: budesonide 0.5mg/2ml UD nebule IH SCH (20:23)
[2022-03-21] MEDS: metFORMIN 500mg tablet PO SCH (20:36)
[2022-03-21] MEDS: HYDROcodone/acetaminophen 5mg/325mg tablet PO PRN (20:36)
[2022-03-22] MEDS: temazepam 15mg capsule PO PRN ×2 (01:05→22:20)
[2022-03-22] MEDS: pantoprazole 40MG/NS 100ML BAG 100 ML IV SCH ×5 (01:05→22:20)
[2022-03-22 02:00] VITALS: BP 163/49
--- NOTE | 2022-03-22 06:17 | NUR ---
Problems reprioritized. Patient report given, questions answered & plan of care reviewed with Dulce REYES.
[2022-03-22 06:44] LABS: BASOPHILS % (AUTO) 0.5 % (0-1); EOSINOPHILS # (AUTO) 0.1 X10'3 (0-0.9); EOSINOPHILS % (AUTO) 1.9 % (0-6); HEMATOCRIT 25.5 % (35.0-45.0); HEMOGLOBIN 8.6 g/dl (12.0-16.0); MEAN CORPUSCULAR HEMOGLOBIN 32.8 PG (27.0-31.0); MEAN CORPUSCULAR HGB CONC 33.8 g/dL (33.0-36.5); MEAN CORPUSCULAR VOLUME 97.3 FL (78-98); MEAN PLATELET VOLUME 7.3 FL (7.4-10.4); MONOCYTES # (AUTO) 0.4 X10'3 (0-0.9); MONOCYTES % (AUTO) 5.9 % (2-12); NEUTROPHILS # (AUTO) 5.7 X10'3 (1.8-7.7); NEUTROPHILS % (AUTO) 77.7 % (42-75); PLATELET COUNT 317 X10'3 (140-440); RED BLOOD COUNT 2.62 X10'6 (4.20-5.60); RED CELL DISTRIBUTION WIDTH 13.8 % (11.5-14.5); WHITE BLOOD COUNT 7.3 X10'3 (4.5-11.0)
[2022-03-22 06:58] LABS: ALANINE AMINOTRANSFERASE 15 U/L (12-78); ALBUMIN 2.6 G/DL (3.4-5.0); ALKALINE PHOSPHATASE 60 IU/L (46-116); ANION GAP 8 (8-16); ASPARTATE AMINO TRANSFERASE 17 U/L (10-37); BILIRUBIN,TOTAL 0.4 MG/DL (0.1-1.0); BLOOD UREA NITROGEN 26 MG/DL (7-18); BUN/CREATININE RATIO 22.4 (6.6-38.0); CALCIUM 8.2 MG/DL (8.5-10.1); CHLORIDE 112 MMOL/L (99-107); CREATININE 1.16 MG/DL (0.40-0.90); GLUCOSE 95 MG/DL (70-104); MAGNESIUM 1.8 MG/DL (1.5-2.4); POTASSIUM 4.7 MMOL/L (3.5-5.1); SODIUM 145 MMOL/L (135-145); TOTAL CARBON DIOXIDE 24.7 MMOL/L (24-32); TOTAL PROTEIN 5.2 G/DL (6.4-8.2); eGFR 45 ML/MIN
[2022-03-22 07:20] VITALS: BP 179/70
[2022-03-22] MEDS: metFORMIN 500mg tablet PO SCH (07:40)
[2022-03-22] MEDS: HYDROcodone/acetaminophen 5mg/325mg tablet PO PRN ×3 (07:41→19:18)
[2022-03-22] MEDS: atorvastatin 10mg tablet PO SCH (07:43)
[2022-03-22] MEDS: PATIROMER CALCIUM SORBITEX 8.4 GM POWD.PACK PO SCH (07:43)
[2022-03-22] MEDS: lisinopril 10 MG tablet PO SCH (07:43)
[2022-03-22] MEDS: docusate sod 100mg capsule PO SCH ×2 (07:43→19:18)
--- NOTE | 2022-03-22 07:47 | NUR ---
03/22 0735: RT AT PATIENTS BEDSIDE FOR Q6 SVN TX. PATIENT STATED THAT SHE WOULD LIKE HER PAIN MED'S PRIOR TO SVN TX. PATIENT SHOWING NO SIGNS OF SOB/DISTRESS. RT WILL RETURN AT A LATER TIME. Addendum: 03/22/22 at 0749 by Shaneka Green RT Amended: Links added.
[2022-03-22] MEDS: K and/or MAG REPLACEMENT MC SCH ×2 (08:00→19:20)
[2022-03-22] MEDS: budesonide 0.5mg/2ml UD nebule IH SCH ×2 (08:00→19:49)
[2022-03-22] MEDS: albuterol 2.5 MG/3 ML nebule NEB SCH ×3 (08:00→19:49)
[2022-03-22] MEDS ORDERED: non-formulary drug (Budesonide/Formoterol Fumarate (Symbicort 160-4.5 Mcg Inhaler) 1 PUFF) INH SCH (08:00)
[2022-03-22 11:53] VITALS: BP 131/81
[2022-03-22] MEDS: normal saline 1000ml 1,000 ML IV SCH (14:28)
[2022-03-22 15:39] VITALS: BP 171/42
--- NOTE | 2022-03-22 16:10 | NUR ---
PAGER ID: [phone] MESSAGE: [id number] Cesar SPARKS: CAN HER DIET BE ADVANCED? THANKS, NOEMI [phone]
--- NOTE | 2022-03-22 17:18 | NUR ---
PATIENT REFUSED ACCUCHECKS. SAYS SHE ONLY CHECKS ONCE DAILY.
[2022-03-22 18:00] VITALS: BP 157/48
--- NOTE | 2022-03-22 18:32 | NUR ---
Problems reprioritized. Patient report given, questions answered & plan of care reviewed with ERIC BAKER.
--- NOTE | 2022-03-22 18:56 | NUR ---
Patient in room PCU 3027. I have received report from Dulce REYES and had the opportunity to ask questions and assume patient care.
[2022-03-22 22:00] VITALS: BP 154/71
[2022-03-22] MEDS: morphine 2 MG/ML inj. syringe IV PRN (23:21)
[2022-03-23] MEDS: pantoprazole 40MG/NS 100ML BAG 100 ML IV SCH ×3 (01:00→08:01)
[2022-03-23 02:00] VITALS: BP 150/47
[2022-03-23] MEDS: albuterol 2.5 MG/3 ML nebule NEB SCH ×3 (02:54→14:00)
[2022-03-23] MEDS: HYDROcodone/acetaminophen 5mg/325mg tablet PO PRN ×3 (05:04→15:19)
--- NOTE | 2022-03-23 06:24 | NUR ---
Problems reprioritized. Patient report given, questions answered & plan of care reviewed with Dulce REYES.
[2022-03-23 06:25] LABS: BASOPHILS % (AUTO) 0.4 % (0-1); EOSINOPHILS # (AUTO) 0.1 X10'3 (0-0.9); EOSINOPHILS % (AUTO) 1.5 % (0-6); HEMATOCRIT 25.7 % (35.0-45.0); HEMOGLOBIN 8.6 g/dl (12.0-16.0); LYMPHOCYTES % (AUTO) 10.6 % (21-51); MEAN CORPUSCULAR HEMOGLOBIN 33.3 PG (27.0-31.0); MEAN CORPUSCULAR HGB CONC 33.5 g/dL (33.0-36.5); MEAN CORPUSCULAR VOLUME 99.6 FL (78-98); MEAN PLATELET VOLUME 7.3 FL (7.4-10.4); MONOCYTES # (AUTO) 0.5 X10'3 (0-0.9); MONOCYTES % (AUTO) 5.2 % (2-12); NEUTROPHILS # (AUTO) 7.5 X10'3 (1.8-7.7); NEUTROPHILS % (AUTO) 82.3 % (42-75); PLATELET COUNT 316 X10'3 (140-440); RED BLOOD COUNT 2.58 X10'6 (4.20-5.60); RED CELL DISTRIBUTION WIDTH 13.1 % (11.5-14.5); WHITE BLOOD COUNT 9.1 X10'3 (4.5-11.0)
[2022-03-23 06:43] LABS: ALANINE AMINOTRANSFERASE 13 U/L (12-78); ALBUMIN 2.6 G/DL (3.4-5.0); ALKALINE PHOSPHATASE 60 IU/L (46-116); ANION GAP 8 (8-16); ASPARTATE AMINO TRANSFERASE 17 U/L (10-37); BILIRUBIN,TOTAL 0.3 MG/DL (0.1-1.0); BLOOD UREA NITROGEN 19 MG/DL (7-18); BUN/CREATININE RATIO 14.8 (6.6-38.0); CALCIUM 8.2 MG/DL (8.5-10.1); CHLORIDE 108 MMOL/L (99-107); CREATININE 1.28 MG/DL (0.40-0.90); GLUCOSE 100 MG/DL (70-104); MAGNESIUM 1.5 MG/DL (1.5-2.4); POTASSIUM 4.1 MMOL/L (3.5-5.1); SODIUM 140 MMOL/L (135-145); TOTAL CARBON DIOXIDE 24.5 MMOL/L (24-32); TOTAL PROTEIN 5.2 G/DL (6.4-8.2); eGFR 40 ML/MIN
[2022-03-23 07:30] VITALS: BP 134/57
[2022-03-23] MEDS: budesonide 0.5mg/2ml UD nebule IH SCH (07:43)
[2022-03-23] MEDS: atorvastatin 10mg tablet PO SCH (07:59)
[2022-03-23] MEDS: docusate sod 100mg capsule PO SCH (08:00)
[2022-03-23] MEDS: K and/or MAG REPLACEMENT MC SCH (08:00)
[2022-03-23] MEDS: lisinopril 10 MG tablet PO SCH (08:00)
[2022-03-23] MEDS: normal saline 1000ml 1,000 ML IV SCH (08:15)
--- NOTE | 2022-03-23 09:50 | NUR ---
Discharge pending PT approval.
[2022-03-23] MEDS ORDERED: PANT-47 PO (09:51)
[2022-03-23] MEDS: PATIROMER CALCIUM SORBITEX 8.4 GM POWD.PACK PO SCH (10:24)
[2022-03-23 11:52] VITALS: BP 166/65
[2022-03-23 15:00] VITALS: BP 110/56
--- NOTE | 2022-03-23 16:00 | NUR ---
Patient stable and appropriate for discharge home via yellow cab. iv removed, electronic device monitor removed. all belongings taken from room. New Rx e-scripted into preferred pharmacy. All discharge instructions and education given and reviewed with patient, all questions answered. Addendum: 03/23/22 at 1623 by Dulce Garcia RN patient did not qualify for home o2. oxygen saturation never dropped below 90s even during ambulation with PT. patient did have a new FWW delivered to bedside.
== END 2022-03-23 16:01 | disposition home or self-care (01) | DRG 377 ==
LOC: ER 17:03 → ED HOLD 20:22 → PCU 3S 23:31
PROVIDERS: ADMIT Family Medicine; ATTEND Internal Medicine
PROC: 0DB78ZX Excision of Stomach, Pylorus, Via Natural or Artificial Opening Endoscopic, Diagnostic (ICD-10-PCS; principal; 2022-03-21)
PROC: 30233N1 Transfusion of Nonautologous Red Blood Cells into Peripheral Vein, Percutaneous Approach (ICD-10-PCS; 2022-03-21)
DX: K25.4 Chronic or unspecified gastric ulcer with hemorrhage (principal); N17.0 Acute kidney failure with tubular necrosis; D62 Acute posthemorrhagic anemia; I13.0 Hypertensive heart and chronic kidney disease with heart failure and stage 1 through stage 4 chronic kidney disease, or unspecified chronic kidney disease; I50.32 Chronic diastolic (congestive) heart failure; E46 Unspecified protein-calorie malnutrition; Z68.1 Body mass index [BMI] 19.9 or less, adult; E11.65 Type 2 diabetes mellitus with hyperglycemia; N18.9 Chronic kidney disease, unspecified; E11.22 Type 2 diabetes mellitus with diabetic chronic kidney disease; E11.51 Type 2 diabetes mellitus with diabetic peripheral angiopathy without gangrene; E78.00 Pure hypercholesterolemia, unspecified; E78.5 Hyperlipidemia, unspecified; W18.39XA Other fall on same level, initial encounter; E87.5 Hyperkalemia; G89.4 Chronic pain syndrome; R91.1 Solitary pulmonary nodule; F03.90 Unspecified dementia, unspecified severity, without behavioral disturbance, psychotic disturbance, mood disturbance, and anxiety; K29.70 Gastritis, unspecified, without bleeding; J44.9 Chronic obstructive pulmonary disease, unspecified; J98.4 Other disorders of lung; K57.90 Diverticulosis of intestine, part unspecified, without perforation or abscess without bleeding; N28.1 Cyst of kidney, acquired; R29.6 Repeated falls; Z79.82 Long term (current) use of aspirin; Z86.73 Personal history of transient ischemic attack (TIA), and cerebral infarction without residual deficits; Z87.891 Personal history of nicotine dependence; Z91.81 History of falling; Y93.89 Activity, other specified; Y92.098 Other place in other non-institutional residence as the place of occurrence of the external cause; Y99.8 Other external cause status; Z88.0 Allergy status to penicillin; Z88.5 Allergy status to narcotic agent; Z88.2 Allergy status to sulfonamides; Z88.8 Allergy status to other drugs, medicaments and biological substances; Z79.899 Other long term (current) drug therapy
CPT/HCPCS: 36415; 36430; 43239; 71045; 71250; 74176; 80053; 81003; 82272; 82948; 83036; 83690; 83735; 83880; 84100; 84132; 84484; 85025; 85610; 86885; 86900; 86901; 86920; 87081; 88305; 92508; 92616; 93005; 94640; 94760; 96361; 96374; 96375; 97116; 97161; 97530; 99152; 99285; A4615; A4620; C9113; G0378; J1200; J1815; J2250; J2270; J2405; J3010; J3490; J7030; J7040; P9016

== ENCOUNTER 2022-05-04 14:07 | Emergency (ER) | payer OTHER, MEDICAID ==
[~2022-05-04] VITALS: Ht 154.9 cm; Wt 40.9 kg
[~2022-05-04 14:07] MED LIST changes: -ASPI81TA52 PO; +ATOR10TA87 PO; -CLOP75TA34 PO; -MELO-100 PO; +PANT-47 PO
[2022-05-04 14:46] LABS: BASOPHILS % (AUTO) 0.2 % (0-1); EOSINOPHILS % (AUTO) 0.3 % (0-6); HEMATOCRIT 36.6 % (35.0-45.0); HEMOGLOBIN 11.8 g/dl (12.0-16.0); LYMPHOCYTES # (AUTO) 0.6 X10'3 (1.1-4.8); LYMPHOCYTES % (AUTO) 4.3 % (21-51); MEAN CORPUSCULAR HEMOGLOBIN 31.6 PG (27.0-31.0); MEAN CORPUSCULAR HGB CONC 32.2 g/dL (33.0-36.5); MEAN CORPUSCULAR VOLUME 98.1 FL (78-98); MEAN PLATELET VOLUME 7.9 FL (7.4-10.4); MONOCYTES # (AUTO) 0.7 X10'3 (0-0.9); MONOCYTES % (AUTO) 4.6 % (2-12); NEUTROPHILS # (AUTO) 13.5 X10'3 (1.8-7.7); NEUTROPHILS % (AUTO) 90.6 % (42-75); PLATELET COUNT 223 X10'3 (140-440); RED BLOOD COUNT 3.73 X10'6 (4.20-5.60); RED CELL DISTRIBUTION WIDTH 13.3 % (11.5-14.5); WHITE BLOOD COUNT 14.8 X10'3 (4.5-11.0)
[2022-05-04 15:00] LABS: ALANINE AMINOTRANSFERASE 13 U/L (12-78); ALBUMIN 3.9 G/DL (3.4-5.0); ALKALINE PHOSPHATASE 104 IU/L (46-116); ANION GAP 13 (8-16); ASPARTATE AMINO TRANSFERASE 19 U/L (10-37); BILIRUBIN,TOTAL 0.3 MG/DL (0.1-1.0); BLOOD UREA NITROGEN 25 MG/DL (7-18); BUN/CREATININE RATIO 21.4 (6.6-38.0); CALCIUM 9.3 MG/DL (8.5-10.1); CHLORIDE 99 MMOL/L (99-107); CREATININE 1.17 MG/DL (0.40-0.90); GLUCOSE 111 MG/DL (70-104); POTASSIUM 5.1 MMOL/L (3.5-5.1); SODIUM 135 MMOL/L (135-145); TOTAL CARBON DIOXIDE 23.5 MMOL/L (24-32); TOTAL PROTEIN 7.7 G/DL (6.4-8.2); eGFR 45 ML/MIN
[2022-05-04 16:36] LABS: D-DIMER 0.58 MG/L FEU (0-0.50)
[2022-05-04] MEDS ORDERED: LIDOcaine Viscous 15ml cup MM ONE (17:00)
[2022-05-04] MEDS ORDERED: mag hydrox/Alum hydrox/simeth 30ml oral suspension PO ONE (17:00)
[2022-05-04] MEDS ORDERED: ondansetron/PF 4mg/2ml inj IV ONE (17:00)
[2022-05-04 17:52] LABS: LIPASE 81 U/L (73-393)
[2022-05-04] MEDS ORDERED: pantoprazole 40mg Tablet.DR PO STA (19:43)
[2022-05-04] MEDS ORDERED: SUCR1ORA12 PO (19:51)
[2022-05-04] MEDS ORDERED: ACET650T58 PO (19:51)
[2022-05-04] MEDS ORDERED: PANT-47 PO (19:51)
[2022-05-04 20:00] VITALS: BP 146/57
== END 2022-05-04 20:30 | disposition home or self-care (01) ==
LOC: ER 14:08
DX: R10.12 Left upper quadrant pain (principal); R10.13 Epigastric pain; F03.90 Unspecified dementia, unspecified severity, without behavioral disturbance, psychotic disturbance, mood disturbance, and anxiety; I73.9 Peripheral vascular disease, unspecified; J44.9 Chronic obstructive pulmonary disease, unspecified; E78.00 Pure hypercholesterolemia, unspecified; I11.0 Hypertensive heart disease with heart failure; I50.9 Heart failure, unspecified; Z86.73 Personal history of transient ischemic attack (TIA), and cerebral infarction without residual deficits; Z87.01 Personal history of pneumonia (recurrent); E11.22 Type 2 diabetes mellitus with diabetic chronic kidney disease; I12.9 Hypertensive chronic kidney disease with stage 1 through stage 4 chronic kidney disease, or unspecified chronic kidney disease; N18.9 Chronic kidney disease, unspecified; Z88.0 Allergy status to penicillin; Z88.2 Allergy status to sulfonamides; Z88.8 Allergy status to other drugs, medicaments and biological substances; Z79.899 Other long term (current) drug therapy
CPT/HCPCS: 36415; 71045; 71275; 74177; 80053; 83690; 83880; 84484; 85025; 85379; 93005; 96374; 99285; J2405; J3490

== ENCOUNTER 2022-07-11 12:47 | Inpatient (IN) | payer BC, MEDICAID ==
[~2022-07-11] VITALS: Ht 154.9 cm; Wt 40.0 kg
[~2022-07-11 12:47] MED LIST changes: +SUCR1ORA12 PO
[2022-07-11] MEDS ORDERED: HYDROcodone/acetaminophen 10/325mg tab PO ONE (16:10)
[2022-07-11 17:18] LABS: BASOPHILS # (AUTO) 0.1 X10'3 (0-0.2); BASOPHILS % (AUTO) 1.4 % (0-1); EOSINOPHILS # (AUTO) 0.2 X10'3 (0-0.9); HEMATOCRIT 34.3 % (35.0-45.0); HEMOGLOBIN 11.1 g/dl (12.0-16.0); LYMPHOCYTES # (AUTO) 1.1 X10'3 (1.1-4.8); LYMPHOCYTES % (AUTO) 17.6 % (21-51); MEAN CORPUSCULAR HEMOGLOBIN 31.6 PG (27.0-31.0); MEAN CORPUSCULAR HGB CONC 32.3 g/dL (33.0-36.5); MEAN CORPUSCULAR VOLUME 97.9 FL (78-98); MONOCYTES # (AUTO) 0.4 X10'3 (0-0.9); MONOCYTES % (AUTO) 6.4 % (2-12); NEUTROPHILS # (AUTO) 4.2 X10'3 (1.8-7.7); NEUTROPHILS % (AUTO) 70.6 % (42-75); PLATELET COUNT 203 X10'3 (140-440); RED CELL DISTRIBUTION WIDTH 16.7 % (11.5-14.5)
[2022-07-11] MEDS ORDERED: magnesium 2GM in 50ml NS 50 ML IV PRN (17:25)
[2022-07-11] MEDS ORDERED: POTASSIUM BICARB 20meq eff tab 20 MEQ TABLET.EFF PO PRN ×2 (17:25)
[2022-07-11] MEDS ORDERED: mag hydrox/Alum hydrox/simeth 30ml oral suspension PO PRN (17:25)
[2022-07-11] MEDS ORDERED: potassium CL 10mEq/100ml bag 100 ML IV PRN (17:25)
[2022-07-11] MEDS ORDERED: ondansetron/PF 4mg/2ml inj IV PRN (17:25)
[2022-07-11] MEDS ORDERED: magnesium hydroxide 30ml (MOM) UD suspension PO PRN (17:25)
[2022-07-11] MEDS ORDERED: magnesium 4gm in 100ml NS 100 ML IV PRN (17:25)
[2022-07-11] MEDS ORDERED: HYDROmorphone inj. 0.5 MG/0.5 ML DISP.SYRIN IV PRN (17:25)
[2022-07-11] MEDS ORDERED: magnesium Cl slow-release 64mg tablet PO PRN (17:25)
[2022-07-11] MEDS ORDERED: acetaminophen 325mg tablet PO PRN (17:25)
[2022-07-11 17:27] LABS: APTT 24 SECONDS (22-32)
[2022-07-11 17:33] LABS: ALANINE AMINOTRANSFERASE 21 U/L (12-78); ALBUMIN 3.7 G/DL (3.4-5.0); ALBUMIN/GLOBULIN RATIO 1.3 (1.1-1.5); ALKALINE PHOSPHATASE 92 IU/L (46-116); ASPARTATE AMINO TRANSFERASE 21 U/L (10-37); BILIRUBIN,TOTAL 0.2 MG/DL (0.1-1.0); BLOOD UREA NITROGEN 33 MG/DL (7-18); BUN/CREATININE RATIO 24.3 (6.6-38.0); CALCIUM 8.3 MG/DL (8.5-10.1); CHLORIDE 111 MMOL/L (99-107); CREATININE 1.36 MG/DL (0.40-0.90); GLUCOSE 149 MG/DL (70-104); TOTAL CARBON DIOXIDE 21.6 MMOL/L (24-32); TOTAL PROTEIN 6.6 G/DL (6.4-8.2); eGFR 38 ML/MIN
[2022-07-11 17:43] LABS: ANION GAP 9 (8-16); POTASSIUM 5.8 MMOL/L (3.5-5.1); SODIUM 142 MMOL/L (135-145)
[2022-07-11] MEDS ORDERED: sodium polystyrene sulfonate 15gm/60ml oral suspension PO ONE (18:00)
[2022-07-11] MEDS: normal saline 1000ml 1,000 ML IV SCH (19:39)
[2022-07-11] MEDS: K and/or MAG REPLACEMENT MC SCH (19:39)
[2022-07-11] MEDS: docusate sod 100mg capsule PO SCH (19:40)
[2022-07-11] MEDS ORDERED: ALBU17AE26 PO (19:47)
[2022-07-11] MEDS ORDERED: MIRT-87 PO (19:47)
[2022-07-11] MEDS ORDERED: MEMA1CAP4 PO (19:47)
[2022-07-11] MEDS ORDERED: PANT40TA54 PO (19:47)
[2022-07-11] MEDS ORDERED: BUDE10.26 PO (19:47)
[2022-07-11] MEDS: HYDROmorphone/PF 0.2 MG/ML SYRINGE IV PRN (21:17)
[2022-07-12] MEDS: normal saline 1000ml 1,000 ML IV SCH ×3 (03:42→23:25)
[2022-07-12] MEDS: HYDROmorphone/PF 0.2 MG/ML SYRINGE IV PRN (03:48)
[2022-07-12 04:09] LABS: BASOPHILS % (AUTO) 0.8 % (0-1); EOSINOPHILS # (AUTO) 0.2 X10'3 (0-0.9); EOSINOPHILS % (AUTO) 4.6 % (0-6); HEMATOCRIT 31.8 % (35.0-45.0); HEMOGLOBIN 10.4 g/dl (12.0-16.0); LYMPHOCYTES # (AUTO) 1.1 X10'3 (1.1-4.8); LYMPHOCYTES % (AUTO) 21.1 % (21-51); MEAN CORPUSCULAR HEMOGLOBIN 31.6 PG (27.0-31.0); MEAN CORPUSCULAR HGB CONC 32.6 g/dL (33.0-36.5); MEAN CORPUSCULAR VOLUME 96.9 FL (78-98); MEAN PLATELET VOLUME 7.9 FL (7.4-10.4); MONOCYTES # (AUTO) 0.5 X10'3 (0-0.9); MONOCYTES % (AUTO) 9.2 % (2-12); NEUTROPHILS # (AUTO) 3.5 X10'3 (1.8-7.7); NEUTROPHILS % (AUTO) 64.3 % (42-75); PLATELET COUNT 175 X10'3 (140-440); RED BLOOD COUNT 3.28 X10'6 (4.20-5.60); RED CELL DISTRIBUTION WIDTH 16.5 % (11.5-14.5); WHITE BLOOD COUNT 5.4 X10'3 (4.5-11.0)
[2022-07-12 04:20] LABS: ALBUMIN 3.1 G/DL (3.4-5.0); ANION GAP 5 (8-16); BLOOD UREA NITROGEN 32 MG/DL (7-18); BUN/CREATININE RATIO 21.8 (6.6-38.0); CALCIUM 8.2 MG/DL (8.5-10.1); CHLORIDE 114 MMOL/L (99-107); CREATININE 1.47 MG/DL (0.40-0.90); GLUCOSE 111 MG/DL (70-104); SODIUM 141 MMOL/L (135-145); TOTAL CARBON DIOXIDE 22.3 MMOL/L (24-32); eGFR 34 ML/MIN
[2022-07-12 04:27] LABS: POTASSIUM 5.9 MMOL/L (3.5-5.1)
[2022-07-12] MEDS ORDERED: calcium gluconate inj. 1 GM in normal saline 100ml IV soln 100 ML IV ONE (05:45)
[2022-07-12] MEDS ORDERED: sodium bicarbonate (8.4%) inj. 50 MEQ in dextrose 5%-water 1,000 ML IV ONE (05:45)
[2022-07-12] MEDS ORDERED: furosemide 10 MG/1 ML 10ml inj IV ONE (05:45)
[2022-07-12] MEDS ORDERED: sodium bicarbonate (8.4%) 1 mEq/ml syringe IV ONE (05:50)
[2022-07-12] MEDS ORDERED: CALCIUM GLUC 1gm/50ml NACL,iso 50 ML IV ONE (05:55)
[2022-07-12] MEDS: docusate sod 100mg capsule PO SCH ×2 (08:00→19:56)
[2022-07-12] MEDS: K and/or MAG REPLACEMENT MC SCH ×2 (08:00→20:00)
--- NOTE | 2022-07-12 10:06 | NUR ---
LAURA YOUNG (DAUGHTER) #[phone] WILL BE RIDE.
--- NOTE | 2022-07-12 12:34 | NUR ---
Contacted Dr. Sotomayor and requested Ryde per pt request. Pt to be NPO for proceedure, received VO for Dilaudid 0.5mg IV x 1 now as pts scheduled PRN dose not due.
[2022-07-12] MEDS ORDERED: albuterol 2.5 MG/3 ML nebule NEB PRN (12:35)
[2022-07-12 12:40] LABS: ALBUMIN 3.4 G/DL (3.4-5.0); ANION GAP 9 (8-16); BLOOD UREA NITROGEN 34 MG/DL (7-18); BUN/CREATININE RATIO 28.8 (6.6-38.0); CALCIUM 8.9 MG/DL (8.5-10.1); CHLORIDE 110 MMOL/L (99-107); CREATININE 1.18 MG/DL (0.40-0.90); GLUCOSE 92 MG/DL (70-104); POTASSIUM 5.5 MMOL/L (3.5-5.1); SODIUM 145 MMOL/L (135-145); TOTAL CARBON DIOXIDE 25.9 MMOL/L (24-32); eGFR 44 ML/MIN
[2022-07-12] MEDS ORDERED: HYDROmorphone inj. 0.5 MG/0.5 ML DISP.SYRIN IV ONE (12:40)
[2022-07-12] MEDS ORDERED: iohexol 350MG/ML 100ml bottle IV ONE (15:11)
[2022-07-12] MEDS ORDERED: midazolam 1 mg/ML 2ml injection ONE ×2 (15:11→16:16)
[2022-07-12] MEDS ORDERED: fentaNYL/PF 50MCG/1 ML 2ML syringe ONE ×2 (15:11→16:16)
[2022-07-12] MEDS ORDERED: LIDOcaine 1% 30ml preserv. free vial ONE (15:12)
[2022-07-12] MEDS ORDERED: heparin 1,000unit/ml 10ml vial 10 ML ONE (15:55)
[2022-07-12] MEDS ORDERED: clopidogrel 300mg tablet ONE (16:39)
[2022-07-12] MEDS ORDERED: ondansetron/PF 4mg/2ml inj IV PRN (17:45)
[2022-07-12] MEDS ORDERED: proCHLORperazine 10 MG/2 ml inj IV PRN (17:50)
[2022-07-12] MEDS ORDERED: OXAZEpam 15mg capsule PO PRN (17:50)
[2022-07-12] MEDS ORDERED: HYDROcodone/acetaminophen 10/325mg tab PO PRN (17:50)
[2022-07-12 18:53] VITALS: BP 173/86
[2022-07-12] MEDS: pantoprazole 40mg Tablet.DR PO SCH (19:56)
[2022-07-12] MEDS: budesonide 0.5mg/2ml UD nebule IH SCH (20:18)
[2022-07-12] MEDS: albuterol 2.5 MG/3 ML nebule NEB SCH (20:18)
[2022-07-12] MEDS ORDERED: DONEPEZIL HCL PO SCH (21:00)
[2022-07-12] MEDS ORDERED: MEMANTINE HCL PO SCH (21:00)
[2022-07-12] MEDS ORDERED: mirtazapine 15mg tablet PO SCH (21:00)
[2022-07-13] MEDS: albuterol 2.5 MG/3 ML nebule NEB SCH ×2 (02:07→07:33)
[2022-07-13 06:00] VITALS: BP 188/63
[2022-07-13] MEDS: budesonide 0.5mg/2ml UD nebule IH SCH (07:33)
[2022-07-13] MEDS ORDERED: lisinopril 10 MG tablet PO SCH (08:00)
[2022-07-13] MEDS ORDERED: clopidogrel 75mg tablet PO SCH (08:00)
[2022-07-13] MEDS ORDERED: donepezil 5mg tablet PO SCH (08:00)
[2022-07-13] MEDS ORDERED: memantine 5mg tablet PO SCH (08:00)
[2022-07-13] MEDS: docusate sod 100mg capsule PO SCH (08:00)
[2022-07-13] MEDS ORDERED: atorvastatin 10mg tablet PO SCH (08:00)
[2022-07-13] MEDS: K and/or MAG REPLACEMENT MC SCH (08:00)
[2022-07-13 08:15] LABS: BASOPHILS % (AUTO) 0.7 % (0-1); EOSINOPHILS # (AUTO) 0.2 X10'3 (0-0.9); EOSINOPHILS % (AUTO) 3.7 % (0-6); HEMATOCRIT 31.9 % (35.0-45.0); HEMOGLOBIN 10.5 g/dl (12.0-16.0); LYMPHOCYTES % (AUTO) 20.6 % (21-51); MEAN CORPUSCULAR HEMOGLOBIN 31.4 PG (27.0-31.0); MEAN CORPUSCULAR HGB CONC 32.7 g/dL (33.0-36.5); MEAN PLATELET VOLUME 8.2 FL (7.4-10.4); MONOCYTES # (AUTO) 0.4 X10'3 (0-0.9); NEUTROPHILS # (AUTO) 3.1 X10'3 (1.8-7.7); PLATELET COUNT 183 X10'3 (140-440); RED BLOOD COUNT 3.33 X10'6 (4.20-5.60); RED CELL DISTRIBUTION WIDTH 16.7 % (11.5-14.5); WHITE BLOOD COUNT 4.6 X10'3 (4.5-11.0)
[2022-07-13] MEDS: HYDROcodone/acetaminophen 5mg/325mg tablet PO PRN ×2 (08:31→12:39)
[2022-07-13 08:32] LABS: ALBUMIN 3.2 G/DL (3.4-5.0); ANION GAP 12 (8-16); BLOOD UREA NITROGEN 24 MG/DL (7-18); BUN/CREATININE RATIO 24.2 (6.6-38.0); CALCIUM 8.6 MG/DL (8.5-10.1); CHLORIDE 111 MMOL/L (99-107); CHOL/HDL RATIO 2.5 (0.00-4.99); CHOLESTEROL 122 MG/DL (0-200); CREATININE 0.99 MG/DL (0.40-0.90); GLUCOSE 88 MG/DL (70-104); HDL CHOLESTEROL 48 MG/DL (35-60); LDL CHOLESTEROL 55 MG/DL (50-100); MAGNESIUM 1.6 MG/DL (1.5-2.4); POTASSIUM 4.3 MMOL/L (3.5-5.1); SODIUM 144 MMOL/L (135-145); TOTAL CARBON DIOXIDE 21.4 MMOL/L (24-32); TRIGLYCERIDES 117 MG/DL (20-135); eGFR 54 ML/MIN
[2022-07-13] MEDS: pantoprazole 40mg Tablet.DR PO SCH (08:32)
--- NOTE | 2022-07-13 09:25 | NUR ---
Noted pt with a low BMI of 16.7 using scaled wt of 40 kg. Pt appears to be chronically low weight per documented wt hx in EMR. Pt on a heart healthy diet, documented with 25% PO intake of first meal, though noted pt historically eats well (~75-100%) during admits so hopeful that PO intake will be improved at following meals. Pt with no documented decrease in muscle strength or edema and pt appears well developed well nourished per ED report. Pt currently lacks a minimum of two criteria for malnutrition. Will continue to follow. Addendum: 07/13/22 at [address] Amended: Links added.
[2022-07-13 09:52] VITALS: BP 169/51
[2022-07-13] MEDS ORDERED: ASPI81TA52 PO (10:23)
[2022-07-13] MEDS ORDERED: CLOP75TA15 PO (10:23)
--- NOTE | 2022-07-13 12:20 | NUR ---
DM consult: Pt w/ hx of DM A1c 5.8 on March of this year. Well controlled and appropriate. DM ed not indicated Addendum: 07/13/22 at [address] Amended: Links added.
[2022-07-13 12:56] LABS: HEMOGLOBIN A1C 6.1 % (4.5-6.2)
--- NOTE | 2022-07-13 13:15 | NUR ---
warehouse driver acknowledge stop at [facility] pharmacy Rajinder prior to home.
== END 2022-07-13 13:21 | disposition home or self-care (01) | DRG 252 ==
LOC: ER 12:48 → ED HOLD 17:27 → UNDOADMIN 17:27 → PCU 3S 07-12 17:05
PROVIDERS: ADMIT Family Medicine; ATTEND Family Medicine
PROC: B41D1ZZ Fluoroscopy of Aorta and Bilateral Lower Extremity Arteries using Low Osmolar Contrast (ICD-10-PCS; principal; 2022-07-12)
PROC: 047D3EZ Dilation of Left Common Iliac Artery with Two Intraluminal Devices, Percutaneous Approach (ICD-10-PCS; 2022-07-12)
PROC: 047L3DZ Dilation of Left Femoral Artery with Intraluminal Device, Percutaneous Approach (ICD-10-PCS; 2022-07-12)
DX: E11.51 Type 2 diabetes mellitus with diabetic peripheral angiopathy without gangrene (principal); N17.0 Acute kidney failure with tubular necrosis; E11.22 Type 2 diabetes mellitus with diabetic chronic kidney disease; E78.00 Pure hypercholesterolemia, unspecified; I12.9 Hypertensive chronic kidney disease with stage 1 through stage 4 chronic kidney disease, or unspecified chronic kidney disease; I70.8 Atherosclerosis of other arteries; Z20.822 Contact with and (suspected) exposure to COVID-19; J44.9 Chronic obstructive pulmonary disease, unspecified; K21.9 Gastro-esophageal reflux disease without esophagitis; E87.5 Hyperkalemia; I70.212 Atherosclerosis of native arteries of extremities with intermittent claudication, left leg; N18.9 Chronic kidney disease, unspecified; Z77.22 Contact with and (suspected) exposure to environmental tobacco smoke (acute) (chronic); Z82.0 Family history of epilepsy and other diseases of the nervous system; Z82.49 Family history of ischemic heart disease and other diseases of the circulatory system; Z86.73 Personal history of transient ischemic attack (TIA), and cerebral infarction without residual deficits; Z87.891 Personal history of nicotine dependence; Z88.0 Allergy status to penicillin; Z88.5 Allergy status to narcotic agent; Z88.2 Allergy status to sulfonamides; Z79.899 Other long term (current) drug therapy
CPT/HCPCS: 36415; 37221; 37226; 80048; 80053; 80061; 82948; 83036; 83735; 85025; 85610; 85730; 87081; 87811; 94640; 94760; 99152; 99153; 99285; A4620; A6258; C1725; C1760; C1769; C1876; C1894; G0378; J0610; J1170; J1644; J1940; J2250; J3010; J3490; J7030; Q9967

== ENCOUNTER 2023-08-23 17:03 | Emergency (ER) | payer MEDICARE, MEDICAID ==
[~2023-08-23] VITALS: Ht 154.9 cm; Wt 43.6 kg
[~2023-08-23 17:03] MED LIST changes: -ALBU8.5H17 INH; -BUDE10.2 INH; +BUDE10.26 PO; +CLOP75TA34 PO; -METF500T PO; +MIRT-87 PO; -PANT-47 PO; +PANT40TA54 PO; -SUCR1ORA12 PO
[2023-08-23] MEDS ORDERED: oxyCODONE/APAP 5-325mg tablet PO ONE (17:50)
[2023-08-23] MEDS ORDERED: OXYC-145 PO (18:21)
[2023-08-23 19:30] VITALS: BP 100/56; PULSE 80; RESP 18; TEMP 98; O2SAT 99
--- NOTE | 2023-08-23 20:20 | NUR ---
agree with Trina sharma's assessment, reviewed.
== END 2023-08-23 19:34 | disposition home or self-care (01) ==
LOC: ER 17:03
DX: M79.605 Pain in left leg (principal); I11.0 Hypertensive heart disease with heart failure; E78.00 Pure hypercholesterolemia, unspecified; J44.9 Chronic obstructive pulmonary disease, unspecified; E11.9 Type 2 diabetes mellitus without complications; Z88.0 Allergy status to penicillin; Z88.5 Allergy status to narcotic agent; Z88.2 Allergy status to sulfonamides
CPT/HCPCS: 73502; 73564; 99284